=== PATIENT | female | born 1995 | race African-American/Black ===

== ENCOUNTER 2018-08-16 11:15 | Emergency (ER) | payer OTHER ==
[2018-08-16 11:42] LABS: BILIRUBIN,URINE NEGATIVE (NEGATIVE); GLUCOSE, URINE (UA) NEGATIVE (NEGATIVE); KETONES,URINE (UA) NEGATIVE (NEGATIVE); LEUKOCYTE ESTERASE, URINE NEGATIVE (NEGATIVE); NITRITE,URINE NEGATIVE (NEGATIVE); OCCULT BLOOD,URINE NEGATIVE (NEGATIVE); PROTEIN,URINE NEGATIVE (NEGATIVE); UROBILINOGEN,URINE 0.2 (NORMAL) E.U./dL (NORMAL)
[2018-08-16 11:44] LABS: CLARITY,URINE CLEAR (CLEAR); HCG UR QUAL NEGATIVE
--- NOTE | 2018-08-16 11:49 | ED Physician Documentation ---
PD HPI FEMALE - Stated complaint Stated Complaint: FEMALE - Chief complaint Chief Complaint: Abd Pain - History obtained from History obtained from: Patient - History of Present Illness Timing - onset: How many weeks ago (2) Timing - duration: Seconds, Minutes Timing - details: Intermittant Associated symptoms: Pelvic pain (sharp cramps and pains intermittently. No related to intercourse.), Vaginal discharge (minimal). 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 - Present Medications Home Medications: Ambulatory Orders Medication Instructions Recorded Confirmed Metronidazole [Flagyl] 500 mg PO BID #14 tablet 08/16/18 Naproxen 375 mg PO BID #20 tablet 08/16/18 - Allergies Allergies/Adverse Reactions: Allergies Allergy/AdvReac Type Severity Reaction Status Date / Time No Known Drug Allergies Allergy Verified 08/16/18 11:30 PD ED PE NORMAL - Vitals Vital signs reviewed: Yes - General General: Alert and oriented X 3, No acute distress, Well developed/nourished - Cardiac Cardiac: RRR, No murmur - Respiratory Respiratory: Clear bilaterally - Abdomen Abdomen: Normal bowel sounds, Soft, Non tender, Non distended - Female Female : Other (external normal. vault with white milky discharge with some malodor. No cervicitis seen. ) - Rectal Rectal: Deferred - Back Back: No CVA TTP - Derm Derm: Normal color, Warm and dry - Extremities Extremities: No tenderness to palpate, Normal ROM s pain - Neuro Neuro: Alert and oriented X 3, No motor deficit, Normal speech Results - Vitals Vitals: Oxygen O2 Source Room air - Labs Labs: Microbiology 08/16/18 13:30 Wet Prep - Final Genital - Vaginal Laboratory Tests 08/16/18 08/16/18 11:32 13:30 Urine Color YELLOW Urine Clarity CLEAR Urine pH 7.0 Ur Specific [place] <=1.005 Urine Protein NEGATIVE Urine Glucose (UA) NEGATIVE Urine Ketones NEGATIVE Urine Occult Blood NEGATIVE Urine Nitrite NEGATIVE Urine Bilirubin NEGATIVE Urine Urobilinogen 0.2 (NORMAL) Ur Leukocyte Esterase NEGATIVE Ur Microscopic Review NOT INDICATED Urine Culture Comments NOT INDICATED Urine HCG, Qual NEGATIVE Chlam trachomat DNA PCR NEGATIVE N.gonorrhoeae DNA (PCR) NEGATIVE T. vaginalis (PCR) NEGATIVE - Rads (name of study) pelvic U/S Radiology: Prelim report reviewed (multifollicular, no large cysts, no free fluid. Normal flow to ovaries. ), See rad report PD MEDICAL DECISION MAKING - ED course Complexity details: reviewed results, considered differential, d/w patient Departure - Departure Disposition: 01 Home, Self Care Clinical Impression: Pelvic pain, Bacterial vaginitis Condition: Stable Record reviewed to determine appropriate education?: Yes Instructions: ED Vaginosis Bacterial Follow-Up: Deanne Walker ARNP [Primary Care Provider] - Prescriptions: Metronidazole [Flagyl] 500 mg PO BID #14 tablet Naproxen 375 mg PO BID #20 tablet Comments: Stay well-hydrated. Naproxen anti-inflammatory twice daily for a week. Metronidazole antibiotic twice daily for a week as well for the bacterial vaginosis. We did do a culture as well and will call you if we need to change antibiotics based on the results of that in a couple of days. Follow-up with your primary care or gynecology if not improved over the next week. Your ultrasound showed a normal finding of several small follicles. There are no large cysts. There is no signs of bleeding or ruptured cyst. The uterus appeared normal without any fibroids or such. There is good blood flow to both ovaries. Essentially normal pelvic ultrasound. Discharge Date/Time: 08/16/18 15:38
[2018-08-16] MEDS ORDERED: IBUPROFEN 600 MG TABLET PO STA (12:26)
[2018-08-16] MEDS ORDERED: metroNIDAZOLE 250 MG TABLET PO STA (13:34)
--- NOTE | 2018-08-16 15:18 | Ultrasound Report ---
Reason: pelvic pain Procedure Date: 08/16/2018 Accession Number: [id number] / [id number] Procedure: US - Pelvic w/Transvag+Doppler Ltd CPT Code: FULL RESULT: EXAM: PELVIC ULTRASOUND WITH DOPPLERS CLINICAL HISTORY: Pelvic pain. COMPARISON: None. TECHNIQUE: Realtime transabdominal imaging performed to identify the uterus and adnexa and as an overview of other pelvic structures, followed by transvaginal imaging for better assessment of the endometrium and adnexa, with static image documentation. Color flow imaging and Doppler spectral analysis was performed to evaluate blood flow to the ovaries given pelvic pain and clinical concern for ovarian torsion. FINDINGS: Uterus: 6.4 x 2.6 x 4.5 cm, volume 39.2 cc. Anteverted position. Normal overall size and echotexture. Masses: None. Endometrium: 6.5 mm. No endometrial mass or polyp. Cervix: Unremarkable. Right Ovary: 3.2 x 1.6 x 2 cm, volume 5.1 cc. Normal echotexture. Arterial and venous blood flow are present. PSV 8.3 cm/sec. RI 0.4. Adnexa notable for prominent vascular structures measuring up to 0.6 cm. Otherwise, right adnexa is unremarkable. Left Ovary: 3.3 x 2 x 2.2 cm, volume 7.4 cc. Normal echotexture. Arterial and venous blood flow are present. PSV 6.1 cm/sec. RI 0.4. Adnexa are unremarkable. Free Fluid: Small volume free fluid is noted. Other: None. IMPRESSION: 1. No uterine mass. 2. No endometrial mass or polyp. 3. Multiple bilateral ovarian follicles. No concerning features. No adnexal mass lesion. Small volume free fluid. Prominent right adnexal vessels. Correlate for pelvic congestion symptoms. 4.Arterial and venous blood flow are present to the ovaries bilaterally. RADIA
[2018-08-16 15:36] VITALS: BP 121/92
[2018-08-16 21:35] LABS: TRICHOMONAS VAGINALIS DNA NEGATIVE (NEGATIVE)
== END 2018-08-16 15:38 | disposition home or self-care (01) ==
LOC: ED 11:15
DX: R10.2 Pelvic and perineal pain (principal); N76.0 Acute vaginitis
CPT/HCPCS: 76830; 76856; 81003; 81025; 87210; 87491; 87591; 87661; 93976; 99283; 99284; A9270; 81001; 87086

== ENCOUNTER 2020-03-21 08:00 | Outpatient (CLI) | payer OTHER ==
[2020-03-22 12:59] LABS: MUDS CUTOFF CONCENTRATIONS CUTOFF CONC BELOW:
[2020-03-22 13:04] LABS: BILIRUBIN,URINE NEGATIVE (NEGATIVE); GLUCOSE, URINE (UA) NEGATIVE (NEGATIVE); KETONES,URINE (UA) NEGATIVE (NEGATIVE); LEUKOCYTE ESTERASE, URINE NEGATIVE (NEGATIVE); NITRITE,URINE NEGATIVE (NEGATIVE); OCCULT BLOOD,URINE NEGATIVE (NEGATIVE); PROTEIN,URINE NEGATIVE (NEGATIVE); UROBILINOGEN,URINE 0.2 (NORMAL) E.U./dL (NORMAL)
[2020-03-22 13:05] LABS: CLARITY,URINE CLEAR (CLEAR)
[2020-03-22 13:08] LABS: BACTERIA,URINE Rare /HPF (None Seen); RBC,URINE 0-5 /HPF (0-5); SQUAMOUS EPITHELIAL CELL,UR MOD Squamous (<= Few); WBC,URINE 0-3 /HPF (0-5)
[2020-03-22 13:16] LABS: AMPHETAMINE SCREEN,URINE NEGATIVE (NEGATIVE); BARBITURATE SCREEN,UR NEGATIVE (NEGATIVE); BENZODIAZEPINES SCREEN, URINE NEGATIVE (NEGATIVE); COCAINE SCREEN URINE NEGATIVE (NEGATIVE); METHADONE SCREEN, URINE NEGATIVE (NEGATIVE); METHAMPHETAMINES SCREEN, URINE NEGATIVE (NEGATIVE); OPIATE SCREEN, URINE NEGATIVE (NEGATIVE); OXYCODONE SCREEN, URINE NEGATIVE (NEGATIVE); PROPOXYPHENE SCREEN, URINE NEGATIVE (NEGATIVE); THC CANNABINOID SCREEN, URINE NEGATIVE (NEGATIVE); TRICYCLIC ANTIDEPRESSANT,URINE NEGATIVE (NEGATIVE)
== END 2020-03-21 08:01 | disposition home or self-care (01) ==
LOC: LAB 08:00
PROVIDERS: ATTEND Nurse Practitioner Obstetrics & Gynecology
DX: Z32.01 Encounter for pregnancy test, result positive (principal)
CPT/HCPCS: 80306; 81001; 87086

== ENCOUNTER 2020-03-30 14:54 | Outpatient (CLI) | payer OTHER ==
--- NOTE | 2020-03-30 17:36 | Ultrasound Report ---
PROCEDURE: OB First Trimester w/TV INDICATIONS: TEST POSITIVE OUTSIDE/PRIOR DATING DATA: Last menstrual period (LMP): 01/21/2020. LMP-based estimated date of delivery (KAYLIE): 10/27/2020. First dating scan (date and location): 03/30/2020. Estimated date of delivery (KAYLIE) from first dating scan: 10/31/2020. TECHNIQUE: Real-time scanning was performed of the fetus and maternal pelvic organs, with image documentation. Endovaginal scanning was also performed to better visualize the fetus and maternal ovaries. COMPARISON: None. FINDINGS: Embryo: There is a gestational sac in the uterine fundus measuring 3 cm in mean sac diameter. Within the gestational sac there is a fetus measuring 2.6 cm. The composite gestational age is 9 weeks 2 da ys. heart rate detected at 174 bpm. Measurement variability in dating: +/- 4 weeks by LMP, +/- 7 days by mean sac diameter (use before 6 weeks gestation if crown-rump length not able to be measured), +/- 5 days by crown-rump length (6-12 weeks gestation). Maternal organs: Ovaries are normal with a corpus luteum cyst in the left ovary noted. IMPRESSION: Single live intrauterine gestation with average ultrasound age of 9 weeks 2 days. Reviewed by: Rafael Byers MD on 03/30/2020 5:34 PM PST Approved by: Rafael Byers MD on 03/30/2020 5:34 PM PST Station ID: [id number]
== END 2020-03-30 14:55 | disposition home or self-care (01) ==
LOC: DI 14:54
PROVIDERS: ATTEND Nurse Practitioner Obstetrics & Gynecology
DX: Z32.01 Encounter for pregnancy test, result positive (principal)

== ENCOUNTER 2020-04-11 08:00 | Outpatient (CLI) | payer OTHER ==
[2020-04-11 23:45] LABS: CHLAMYDIA TRACHOMATIS DNA NEGATIVE (NEGATIVE); NEISSERIA GONORRHOEAE DNA NEGATIVE (NEGATIVE); TRICHOMONAS VAGINALIS DNA NEGATIVE (NEGATIVE)
== END 2020-04-11 23:59 | disposition home or self-care (01) ==
LOC: LAB.WC 08:00
PROVIDERS: ATTEND Advanced Practice Midwife
DX: Z11.3 Encounter for screening for infections with a predominantly sexual mode of transmission (principal); Z34.00 Encounter for supervision of normal first pregnancy, unspecified trimester
CPT/HCPCS: 87491; 87591; 87661

== ENCOUNTER 2020-04-11 11:54 | Outpatient (CLI) | payer OTHER ==
[2020-04-11 12:22] LABS: BASOPHILS % (AUTO) 0.3 %; EOSINOPHILS # (AUTO) 0.2 10^3/uL (0.0-0.7); EOSINOPHILS % (AUTO) 1.9 %; HCT - HEMATOCRIT 35.9 % (37.0-47.0); HGB - HEMOGLOBIN 11.7 g/dL (12.0-16.0); LYMPHOCYTES # (AUTO) 2.3 10^3/uL (1.5-3.5); LYMPHOCYTES % (AUTO) 23.1 %; MEAN CORPUSCULAR HEMOGLOBIN 27.6 pg (27.0-31.0); MEAN CORPUSCULAR HGB CONC 32.6 g/dL (32.0-36.0); MEAN CORPUSCULAR VOLUME 84.7 fL (81.0-99.0); MEAN PLATELET VOLUME 9.9 fL (7.9-10.8); MONOCYTES # (AUTO) 0.7 10^3/uL (0.0-1.0); MONOCYTES % (AUTO) 7.1 %; NEUTROPHILS # (AUTO) 6.8 10^3/uL (1.5-6.6); NEUTROPHILS % (AUTO) 67.3 %; PLT - PLATELET COUNT 316 10^3/uL (130-450); RED BLOOD COUNT 4.24 10^6/uL (4.20-5.40); RED CELL DISTRIBUTION WIDTH 13.8 % (12.0-15.0); WHITE BLOOD COUNT 10.1 x10^3/uL (4.8-10.8)
[2020-04-11 13:14] LABS: ESTIMATED AVERAGE GLUCOSE 108 mg/dL (70-100); HEMOGLOBIN A1c% 5.4 % (4.27-6.07)
[2020-04-11 23:45] LABS: CHLAMYDIA TRACHOMATIS DNA NEGATIVE (NEGATIVE); NEISSERIA GONORRHOEAE DNA NEGATIVE (NEGATIVE); TRICHOMONAS VAGINALIS DNA NEGATIVE (NEGATIVE)
[2020-04-12 08:31] LABS: HIV AG/AB 4TH GEN NON-REACTIVE (NON-REACTIVE)
[2020-04-12 12:59] LABS: HEPATITIS B SURFACE ANTIGEN NON-REACTIVE (NON-REACTIVE); HEPATITIS C ANTIBODY NON-REACTIVE (NON-REACTIVE)
== END 2020-04-11 11:55 | disposition home or self-care (01) ==
LOC: LAB 11:54
PROVIDERS: ATTEND Advanced Practice Midwife
DX: Z34.00 Encounter for supervision of normal first pregnancy, unspecified trimester (principal); Z36.89 Encounter for other specified antenatal screening; Z11.3 Encounter for screening for infections with a predominantly sexual mode of transmission
CPT/HCPCS: 36415; 83036; 85025; 86592; 86593; 86762; 86780; 86787; 86803; 86850; 86900; 86901; 87340; 87389; 87491; 87591; 87661

== ENCOUNTER 2020-05-13 08:00 | Outpatient (CLI) | payer OTHER ==
[2020-05-16 12:05] LABS: AFP MOM 0.66; AGE RISK DOWN SYNDROME 1 IN 985; CALC'D GESTATIONAL AGE 16.1 weeks; CIGARETTE SMOKER? NOT GIVEN; DONOR AGE: EGG RETRIEVAL NOT GIVEN; DONOR EGG NO; ESTRIOL MOM 1.21; HCG MOM 2.77; HX OF NEURAL TUBE DEFECTS NO; INHIBIN A MOM 1.49; INSULIN DEPEND DIABETIC NO; MATERNAL WEIGHT 179 lbs; MSS DOWN SYNDROME RISK 1 IN 595; MSS3 TRISOMY 18 RISK <1 IN 5000; NUMBER OF FETUSES 1; PREV PREGNANCY DOWN SYND NO; RISK FOR ONTD <1 IN 5000
== END 2020-05-13 23:59 | disposition home or self-care (01) ==
LOC: LAB 08:00
PROVIDERS: ATTEND Nurse Practitioner Obstetrics & Gynecology
DX: Z36.0 Encounter for antenatal screening for chromosomal anomalies (principal)
CPT/HCPCS: 36415; 81220; 81511; 81599

== ENCOUNTER 2020-06-14 13:36 | Outpatient (CLI) | payer OTHER ==
--- NOTE | 2020-06-14 17:10 | Ultrasound Report ---
PROCEDURE: OB Detailed Eval INDICATIONS: SCREENING, SUPERVISION OF NORMAL PREG OUTSIDE/PRIOR DATING DATA: Last menstrual period (LMP): 01/21/2020. LMP-based estimated date of delivery (KAYLIE): 10/27/2020. First dating scan (date and location): 03/30/2020. Estimated date of delivery (KAYLIE) from first dating scan: 10/27/2020 provided by the provider. TECHNIQUE: Real-time scanning was performed of the fetus, with image documentation and biometric measurements. Endovaginal scanning: No COMPARISON: Prior OB ultrasound dated 03/30/2020. FINDINGS: General: A single living intrauterine gestation is present. Presentation: Breech Placenta: Placental position is anterior, without previa. Amniotic fluid index: 17.6 cm, normal for gestational age. heart rate: 157 beats per minute. Maternal cervical canal: 3.6 cm long; normal length is 2.5 cm or more. biometrics: Biparietal diameter: 20 weeks 4 Head circumference: 20 weeks 3 days Abdominal circumference: 20 weeks 3 days Femur length: 20 weeks Estimated gestational age from initial scan: 20 weeks 5 days Composite gestational age from present scan: 20 weeks 3 days Estimated weight and percentile: 3 and 44 g; 24th percentile Measurement variability in biometric dating: +/- 10 days from 12-20 weeks gestation, +/- 2 weeks from 20-30 weeks gestation, +/- 3 weeks at 30 weeks gestation or later. Anatomic survey: Neuro: Ventricles are normal at less than 10 mm. Cisterna magna is normal at 3-11 mm. Cerebellum i s normal in size and morphology. Nuchal skin fold: Normal at less than 6 mm between 14 and 20 weeks gestational age. Face: Nose and lips, facial profile are normal. Spine: No evidence for spina bifida. Heart: 4-chambered heart is present, and cardiac output fracture not well seen. Diaphragm: Diaphragm is intact. Stomach: Left-sided stomach is present. Kidneys: No hydronephrosis. Normal is less than 5 mm in 2nd trimester, less than 7 mm in 3rd trimester. Cord: 3 vessel cord has orthotopic insertion. Bladder: Normal in size. Extremities: All 4 extremities are visualized. IMPRESSION: 1. Normal interval growth 2. Cardiac outflow tracts not well visualized; otherwise normal anatomy. Follow-up recommended. Reviewed by: DEY Pineda on 06/14/2020 5:09 PM PDT Approved by: Rafael Byers MD on 06/14/2020 5:09 PM PDT Station ID: [id number]
== END 2020-06-14 13:37 | disposition home or self-care (01) ==
LOC: DI 13:36
PROVIDERS: ATTEND Nurse Practitioner Obstetrics & Gynecology
DX: Z34.02 Encounter for supervision of normal first pregnancy, second trimester (principal); Z36.89 Encounter for other specified antenatal screening

== ENCOUNTER 2020-07-14 15:41 | Outpatient (CLI) | payer OTHER ==
--- NOTE | 2020-07-15 14:33 | Ultrasound Report ---
PROCEDURE: OB F/U or Repeat INDICATIONS: SUPERVISION OF , COMPLETION OF FAS OUTSIDE/PRIOR DATING DATA: Last menstrual period (LMP): 01/21/2020. LMP-based estimated date of delivery (KAYLIE): 10/27/2020. First dating scan (date and location): 03/30/2020. Estimated date of delivery (KAYLIE) from first dating scan: 10/31/2020. The below data below was generated using the ultrasound KAYLIE of 10/31/2020 TECHNIQUE: Real-time scanning was performed of the fetus, with image documentation and biometric measurements. Endovaginal scanning: Performed COMPARISON: None. FINDINGS: General: A single living intrauterine gestation is present. Presentation: Vertex Placenta: Placental position is anterior, without previa. Amniotic fluid index: 17.7 cm, 5-24 cm normal. heart rate: 152 beats per minute. Maternal cervical canal: Closed. Limited anatomic survey demonstrates normal four-chamber heart, normal cardiac left ventricular outflow tract and normal right cardiac left ventricular outflow track. IMPRESSION: 1. Single living intrauterine . 2. Normal amniotic fluid index. 3. Normal limited anatomic survey with demonstration of normal four-chamber heart as well as normal r ight and left ventricular outflow tracts. Reviewed by: Blanca Liz MD, PhD on 07/15/2020 2:31 PM PDT Approved by: Blanca Liz MD, PhD on 07/15/2020 2:31 PM PDT Station ID: [id number]
== END 2020-07-14 15:42 | disposition home or self-care (01) ==
LOC: DI 15:41
PROVIDERS: ATTEND Nurse Practitioner Obstetrics & Gynecology
DX: Z34.90 Encounter for supervision of normal pregnancy, unspecified, unspecified trimester (principal); Z36.0 Encounter for antenatal screening for chromosomal anomalies

== ENCOUNTER 2020-07-15 14:57 | Outpatient (CLI) | payer OTHER ==
[2020-07-15 16:12] LABS: BILIRUBIN,URINE NEGATIVE (NEGATIVE); GLUCOSE, URINE (UA) NEGATIVE (NEGATIVE); KETONES,URINE (UA) NEGATIVE (NEGATIVE); LEUKOCYTE ESTERASE, URINE SMALL (NEGATIVE); NITRITE,URINE NEGATIVE (NEGATIVE); OCCULT BLOOD,URINE MODERATE (NEGATIVE); PROTEIN,URINE 30 mg/dL (NEGATIVE); UROBILINOGEN,URINE 0.2 (NORMAL) E.U./dL (NORMAL)
[2020-07-15 16:16] LABS: CLARITY,URINE HAZY (CLEAR)
[2020-07-15 16:18] LABS: AMORPHOUS SEDIMENT,UR Rare /LPF; BACTERIA,URINE Few /HPF (None Seen); MUCUS,URINE Few Strands; SQUAMOUS EPITHELIAL CELL,UR FEW Squamous (<= Few)
[2020-07-15 16:33] VITALS: BP 116/73
--- NOTE | 2020-07-15 16:42 | Ultrasound Report ---
PROCEDURE: OB Transvaginal INDICATIONS: abdominal cramping at 25 weeks OUTSIDE/PRIOR DATING DATA: Last menstrual period (LMP): 01/21/2020. LMP-based estimated date of delivery (KAYLIE): 10/27/2020. First dating scan (date and location): 03/30/2020. Estimated date of delivery (KAYLIE) from first dating scan: 10/31/2020. The below data below was generated using the referring provider stated KAYLIE of 10/27/2020 TECHNIQUE: Real-time scanning was performed of the fetus, with image documentation. Endovaginal scanning: Performed COMPARISON: None. FINDINGS: A single living intrauterine gestation is present. Presentation: Vertex Placenta: Not evaluated. Amniotic fluid index: Not evaluated heart rate: 152 beats per minutes. Maternal cervical canal: Closed and 2.8 cm long; normal length is 2.5 cm or more. Estimated gestational age from initial scan: 25 weeks 1 days. IMPRESSION: 1. Single living intrauterine . 2. Cervix is closed and measures 2.8 cm in length. Reviewed by: Blanca Liz MD, PhD on 07/15/2020 4:41 PM PDT Approved by: Blanca Liz MD, PhD on 07/15/2020 4:41 PM PDT Station ID: [id number]
[2020-07-15 17:23] LABS: BASOPHILS % (AUTO) 0.3 %; EOSINOPHILS # (AUTO) 0.2 10^3/uL (0.0-0.7); EOSINOPHILS % (AUTO) 1.9 %; HCT - HEMATOCRIT 31.4 % (37.0-47.0); HGB - HEMOGLOBIN 10.3 g/dL (12.0-16.0); LYMPHOCYTES # (AUTO) 2.5 10^3/uL (1.5-3.5); LYMPHOCYTES % (AUTO) 19.7 %; MEAN CORPUSCULAR HGB CONC 32.8 g/dL (32.0-36.0); MEAN CORPUSCULAR VOLUME 88.5 fL (81.0-99.0); MEAN PLATELET VOLUME 10.2 fL (7.9-10.8); MONOCYTES # (AUTO) 1.1 10^3/uL (0.0-1.0); MONOCYTES % (AUTO) 8.7 %; NEUTROPHILS # (AUTO) 8.7 10^3/uL (1.5-6.6); NEUTROPHILS % (AUTO) 68.8 %; PLT - PLATELET COUNT 280 10^3/uL (130-450); RED BLOOD COUNT 3.55 10^6/uL (4.20-5.40); RED CELL DISTRIBUTION WIDTH 13.6 % (12.0-15.0); WHITE BLOOD COUNT 12.7 x10^3/uL (4.8-10.8)
--- NOTE | 2020-07-15 18:01 | PROVIDER PROGRESS NOTE ---
- HPI Chief Complaint: Other Current : Current EDU 10/27/20 Gestation 25 Weeks and 1 Days 1 Para 0 Vital Signs Temperature 36.9 C 07/15/20 15:03 Heart Rate 83 07/15/20 15:03 Respiratory Rate 18 07/15/20 15:03 Blood Pressure 116/73 07/15/20 15:03 O2 Saturation 100 07/15/20 15:03 Temperature 36.9 C 07/15/20 15:03 Heart Rate 83 07/15/20 15:03 Respiratory Rate 18 07/15/20 15:03 Blood Pressure 116/73 07/15/20 15:03 O2 Saturation 100 07/15/20 15:03 - Procedures OB Procedure Performed: NST Diagnosis/Indication for NST: Other - Plan Plan: Pt evaluated [id number] S: Porshaanessitony presents today to [facility] with c/o back pain which is radiating to her sides. She reports the pain has become most significant today but started yesterday. She report it feels like menstrual-like cramping but at times feels more significant. She reports +FM. She denies vaginal bleeding or leakage of fluid. She denies urinary symptoms other than she does feel she has some urinary pressure at the end of emptying her bladder. She reports regular bowel movement. She denies fever, chills, or malaise. O: Normocephalic, atraumatic. Heart RRR w/o M/G/R, lungs CTAB. Abdomen gravid, soft, nontender. No CVA tenderness on thorough examination. Bilateral LE's no edema. Afebrile. Vital signs WNL NST performed 07/15/2020 NST read 07/15/2020 NST reactive. FHR baseline 140s, moderate variability, no decels. No contractions appreciated via tocometry. Transvaginal ultrasound: Cervical length 2.8cm, closed. FFN negative UA: indicates UTI. A: 25yo @ 25.1wks gestation Urinary tract infection, acute P: Rx sent to [facility] in [place]. Encouraged pt to complete entirely and present if symptoms persist or do not return once completed. Pt released home with precautions. Continue routine pp care. Pt verbalized understanding and agrees to above plan. She denies further questions or concerns at this time. FINAL DIAGNOSIS: Acute UTI
== END 2020-07-15 17:56 | disposition home or self-care (01) ==
LOC: WFO 14:57 → FBP 15:22 → WFO 17:56
PROVIDERS: ATTEND Nurse Practitioner Obstetrics & Gynecology
DX: O23.42 Unspecified infection of urinary tract in pregnancy, second trimester (principal); Z3A.25 25 weeks gestation of pregnancy
CPT/HCPCS: 36415; 81001; 82731; 85025; 87086; 99214

== ENCOUNTER 2020-07-19 08:00 | Outpatient (CLI) | payer OTHER | END 2020-07-19 23:59 | disposition home or self-care (01) | LOC: LAB.WC 08:00 | PROVIDERS: ATTEND Nurse Practitioner Obstetrics & Gynecology | DX: N39.0 Urinary tract infection, site not specified (principal) | CPT/HCPCS: 87086 ==

== ENCOUNTER 2020-08-03 08:08 | Outpatient (CLI) | payer OTHER ==
[2020-08-03 13:11] LABS: HCT - HEMATOCRIT 32.5 % (37.0-47.0); HGB - HEMOGLOBIN 10.6 g/dL (12.0-16.0); MEAN CORPUSCULAR HEMOGLOBIN 28.8 pg (27.0-31.0); MEAN CORPUSCULAR HGB CONC 32.6 g/dL (32.0-36.0); MEAN CORPUSCULAR VOLUME 88.3 fL (81.0-99.0); MEAN PLATELET VOLUME 10.7 fL (7.9-10.8); RED BLOOD COUNT 3.68 10^6/uL (4.20-5.40); RED CELL DISTRIBUTION WIDTH 13.8 % (12.0-15.0); WHITE BLOOD COUNT 10.4 x10^3/uL (4.8-10.8)
== END 2020-08-03 08:09 | disposition home or self-care (01) ==
LOC: LAB.N 08:08
PROVIDERS: ATTEND Nurse Practitioner Obstetrics & Gynecology
DX: O23.40 Unspecified infection of urinary tract in pregnancy, unspecified trimester (principal)
CPT/HCPCS: 36415; 82950; 85025; 85027; 86850

== ENCOUNTER 2020-09-13 08:00 | Outpatient (CLI) | payer OTHER | END 2020-09-13 23:59 | disposition home or self-care (01) | LOC: LAB.WC 08:00 | PROVIDERS: ATTEND Nurse Practitioner Obstetrics & Gynecology | DX: R35.0 Frequency of micturition (principal) | CPT/HCPCS: 87086 ==

== ENCOUNTER 2020-09-16 20:49 | Outpatient (CLI) | payer OTHER ==
[2020-09-16 21:14] VITALS: BP 123/80
[2020-09-16] MEDS ORDERED: LACTATED RINGERS 500 ML IV ONE (21:31)
[2020-09-16] MEDS ORDERED: ACETAMINOPHEN 500 MG TABLET PO ONE (21:32)
[2020-09-16 22:02] LABS: BASOPHILS % (AUTO) 0.4 %; EOSINOPHILS # (AUTO) 0.2 10^3/uL (0.0-0.7); EOSINOPHILS % (AUTO) 1.5 %; HCT - HEMATOCRIT 38.3 % (37.0-47.0); HGB - HEMOGLOBIN 12.3 g/dL (12.0-16.0); LYMPHOCYTES # (AUTO) 2.8 10^3/uL (1.5-3.5); LYMPHOCYTES % (AUTO) 25.4 %; MEAN CORPUSCULAR HEMOGLOBIN 29.6 pg (27.0-31.0); MEAN CORPUSCULAR HGB CONC 32.1 g/dL (32.0-36.0); MEAN CORPUSCULAR VOLUME 92.3 fL (81.0-99.0); MEAN PLATELET VOLUME 10.8 fL (7.9-10.8); MONOCYTES # (AUTO) 1.2 10^3/uL (0.0-1.0); MONOCYTES % (AUTO) 10.6 %; NEUTROPHILS # (AUTO) 6.8 10^3/uL (1.5-6.6); NEUTROPHILS % (AUTO) 61.6 %; PLT - PLATELET COUNT 273 10^3/uL (130-450); RED BLOOD COUNT 4.15 10^6/uL (4.20-5.40); RED CELL DISTRIBUTION WIDTH 13.7 % (12.0-15.0)
[2020-09-16 22:11] LABS: ALBUMIN 3.3 g/dL (3.2-5.5); BILIRUBIN,TOTAL 0.4 mg/dL (0.2-1.0); CALCIUM 9.2 mg/dL (8.5-10.3); CREATININE 0.6 mg/dL (0.4-1.0); POTASSIUM 3.7 mmol/L (3.5-5.0); TOTAL PROTEIN 6.7 g/dL (6.7-8.2)
[2020-09-16 22:13] LABS: CREATININE,URINE 70.3 mg/dL; PROTEIN/CREATININE RATIO,URINE 0.1 (<=0.2)
[2020-09-16] MEDS ORDERED: ACETAMINOPHEN 500 MG TABLET PO PRN (22:17)
--- NOTE | 2020-09-16 23:32 | PROVIDER PROGRESS NOTE ---
- HPI Chief Complaint: Decreased movement Current : Current EDU 10/27/20 Gestation 34 Weeks and 1 Days 1 Para 0 Vital Signs Temperature 37.2 C 09/16/20 20:55 Heart Rate 110 H 09/16/20 20:55 Respiratory Rate 22 09/16/20 20:55 Blood Pressure 131/88 H 09/16/20 20:55 O2 Saturation 98 09/16/20 20:55 Temperature 37.2 C 09/16/20 20:55 Heart Rate 101 H 09/16/20 21:12 Respiratory Rate 20 09/16/20 21:12 Blood Pressure 123/80 09/16/20 21:12 O2 Saturation 100 09/16/20 21:12 - Procedures OB Procedure Performed: NST NST Procedure: NST Procedure Start Date 09/16/20 Start Time 21:05 Stop Time 21:45 Vibroacoustic Stimulation Used No Patient States Movement Yes: decreased - Plan Plan: S: Shun presents to L&D triage with reports of a headache that started yesterday and has worsened over the day. She reports light sensitivity. She feels decreased movement. Denies LOF or VB. Denies contractions. O: Abdomen: soft, gravid, nontender RN reports: clonus-one beat, DTRs +2 CBC- wnl, plt 273 CMP wnl- AST 18; ALT 10 Urine Protein/Creatinine ratio: 0.1 BPs wnl TA 1000mg LR bolus- 500mL NST perform date 09/16/2020 NST read date 09/16/2020 Baseline 135, moderate variability, accels 15x15, no decels Contractions noted on monitor- pt does not feel them A: 25yo at 34.1wks gestation NST- reassuring Preeclampsia ruled out P: Continue with routine care Encouraged magnesium supplementation, and/or food consumption high in magnesium Final Diagnosis: decreased movement
== END 2020-09-16 22:55 | disposition home or self-care (01) ==
LOC: WFO 20:49 → FBP 20:52 → WFO 22:55
PROVIDERS: ATTEND Advanced Practice Midwife
DX: O36.8130 Decreased fetal movements, third trimester, not applicable or unspecified (principal); O99.891 Other specified diseases and conditions complicating pregnancy; R51.9 Headache, unspecified; Z3A.34 34 weeks gestation of pregnancy
CPT/HCPCS: 36415; 59025; 80053; 82570; 84156; 85025; 99214; A9270; J7120

== ENCOUNTER 2020-09-19 09:46 | Outpatient (CLI) | payer OTHER ==
--- NOTE | 2020-09-19 11:25 | Ultrasound Report ---
PROCEDURE: OB F/U or Repeat INDICATIONS: SIZE/DATE DISCREPANCY OUTSIDE/PRIOR DATING DATA: Last menstrual period (LMP): PROCEDURE: OB F/U or Repeat LMP-based estimated date of delivery (KAYLIE): 09/19/2020. First dating scan (date and location): 03/30/2020. Estimated date of delivery (KAYLIE) from first dating scan: 10/31/2020. The below data below was generated using the provider stated KAYLIE of 10/27/2020 TECHNIQUE: Real-time scanning was performed of the fetus, with image documentation and biometric measurements. Endovaginal scanning: COMPARISON: None. FINDINGS: General: A single living intrauterine gestation is present. Presentation: Vertex Placenta: Placental position is anterior, without previa. Amniotic fluid index: 11.3 cm. Deepest pocket is 5.9 cm. heart rate: 164 beats per minute. Maternal cervical canal: Unable to image. biometrics: Biparietal diameter: 7.7 cm. 30 weeks 1 day Head circumference: 24.3 cm. 32 weeks 0 days Abdominal circumference: 31 cm. 34 weeks 0 days Femur length: 6.6 cm. 34 weeks 0 days Estimated gestational age from initial scan: not applicable. Composite gestational ag e from present scan: 33 weeks 1 day Estimated weight and percentile: 2321 g. 28th percentile. Measurement variability in biometric dating: +/- 10 days from 12-20 weeks gestation, +/- 2 weeks from 20-30 weeks gestation, +/- 3 weeks at 30 weeks gestation or more. Anatomy: The chest/diaphragm, stomach/abdomen, bilateral renal regions, and urinary bladder/pelvis we re visualized and appear normal. IMPRESSION: 1. Estimated weight is 2321 g, at the 28th percentile for age. 2. YONIS equals 11.3 cm. Deepest pocket 5.9 cm. Reviewed by: Abhi Doan on 09/19/2020 11:23 AM PDT Approved by: Abhi Doan on 09/19/2020 11:23 AM PDT Station ID: [id number]
== END 2020-09-19 09:47 | disposition home or self-care (01) ==
LOC: DI 09:46
PROVIDERS: ATTEND Nurse Practitioner Obstetrics & Gynecology
DX: O26.843 Uterine size-date discrepancy, third trimester (principal); Z3A.33 33 weeks gestation of pregnancy

== ENCOUNTER 2020-09-23 19:53 | Outpatient (CLI) | payer OTHER ==
[2020-09-23 20:18] LABS: BASOPHILS % (AUTO) 0.3 %; EOSINOPHILS # (AUTO) 0.1 10^3/uL (0.0-0.7); EOSINOPHILS % (AUTO) 1.2 %; HCT - HEMATOCRIT 34.1 % (37.0-47.0); HGB - HEMOGLOBIN 11.5 g/dL (12.0-16.0); LYMPHOCYTES # (AUTO) 2.7 10^3/uL (1.5-3.5); LYMPHOCYTES % (AUTO) 22.6 %; MEAN CORPUSCULAR HEMOGLOBIN 29.9 pg (27.0-31.0); MEAN CORPUSCULAR HGB CONC 33.7 g/dL (32.0-36.0); MEAN CORPUSCULAR VOLUME 88.6 fL (81.0-99.0); MEAN PLATELET VOLUME 10.6 fL (7.9-10.8); MONOCYTES # (AUTO) 1.2 10^3/uL (0.0-1.0); MONOCYTES % (AUTO) 9.8 %; NEUTROPHILS # (AUTO) 7.8 10^3/uL (1.5-6.6); NEUTROPHILS % (AUTO) 65.5 %; PLT - PLATELET COUNT 262 10^3/uL (130-450); RED BLOOD COUNT 3.85 10^6/uL (4.20-5.40); RED CELL DISTRIBUTION WIDTH 13.8 % (12.0-15.0); WHITE BLOOD COUNT 11.8 x10^3/uL (4.8-10.8)
[2020-09-23 20:27] LABS: CREATININE,URINE 105.1 mg/dL; PROTEIN/CREATININE RATIO,URINE 0.2 (<=0.2)
[2020-09-23 20:29] LABS: ALBUMIN 3.1 g/dL (3.2-5.5); ALBUMIN/GLOBULIN RATIO 0.9 (1.0-2.2); BILIRUBIN,TOTAL 0.4 mg/dL (0.2-1.0); CALCIUM 8.8 mg/dL (8.5-10.3); CREATININE 0.6 mg/dL (0.4-1.0); POTASSIUM 3.8 mmol/L (3.5-5.0); TOTAL PROTEIN 6.4 g/dL (6.7-8.2)
[2020-09-23] MEDS ORDERED: oxyCODONE 5 MG TABLET PO ONE (21:00)
[2020-09-23] MEDS ORDERED: ACETAMINOPHEN 500 MG TABLET PO STA (21:03)
[2020-09-23 22:22] VITALS: BP 122/83
--- NOTE | 2020-09-24 11:21 | PROCEDURE REPORT ---
- HPI Diagnosis/Indication for NST: Other (Headache. 25-yo EDC 16 Oct 35 wks 1 d EGA She denies Scotoma. Hx of having decreased FM in the past but nopw notes good FM. anemia during this . Rh -.) Current EDU 10/27/20 Gestation 35 Weeks and 1 Days 1 Para 0 Vital Signs Temperature 37.6 C 09/23/20 20:10 Heart Rate 87 09/23/20 20:10 Respiratory Rate 20 09/23/20 20:10 Blood Pressure 129/83 H 09/23/20 20:10 O2 Saturation 97 09/23/20 20:10 Temperature 37.6 C 09/23/20 20:18 Heart Rate 90 09/23/20 21:01 Respiratory Rate 18 09/23/20 21:01 Blood Pressure 122/83 H 09/23/20 21:16 O2 Saturation 97 09/23/20 20:10 - NST Procedure NST Procedure Start Date 09/23/20 Start Time 21:18 Stop Time 21:48 Vibroacoustic Stimulation Used Yes Patient States Movement Yes: Headache unrelieved w/tylenol and visual changes - Results and Plan Findings/Impression: Some difficulty getting a reactive NST. [id number]. No decelerations. Few mild contractions which the patient did not sense. Patient had a biophysical profile which was 6 out of 8 the lacking number was respirations however she had received oxycodone with Tylenol prior to her BPP. This would explain her absence of respirations. Plan: Patient does not appear to have preeclampsia as her labs do not bear this out neither does her blood pressure. Because of the 8 out of 10 biophysical profile patient will return on Saturday to repeat nonstress test.
--- NOTE | 2020-09-24 12:07 | Ultrasound Report ---
PROCEDURE: OB Biophysical Profile INDICATIONS: Non-reactive NST at 35weeks OUTSIDE/PRIOR DATING DATA: Last menstrual period (LMP): 01/21/2020. LMP-based estimated date of delivery (KAYLIE): 2020. First dating scan (date and location): 03/30/2020. Estimated date of delivery (KAYLIE) from first dating scan: 10/31/2020. The below data below was generated using the KAYLIE of 10/31/2020 TECHNIQUE: Real-time scanning was performed of the fetus, with image documentation and biometric polina surements. Biophysical profile was also obtained. Endovaginal scanning: None COMPARISON: 09/19/2020 FINDINGS: General: A single living intrauterine gestation is present. Presentation: Vertex Placenta: Placental position is anterior, without previa. Amniotic fluid index: 18.7 cm, normal for gestational age. heart rate: 127 beats per minute. Maternal cervical canal: Not well seen cm long; normal length is 2.5 cm or more. Visualized anatomy is with the normal limits Estimated gestational age from initial scan: 35 week 1 day Biophysical profile: 6 out of 8 Tone: 2 points. Movement: 2 points. Respiration: 0 points. respirations movement was not observed during the exam Largest pocket of fluid: 2 points. IMPRESSION: Single live intrauterine consistent with a 35 week 1 day gestation. Biophysical profile 6 out of 8. respirations were not observed during the exam Note: Final report is concordant with preliminary report provided by [facility] Reviewed by: Ovidio Santiago MD on 09/24/2020 11:06 AM ESTHER Approved by: Ovidio Santiago MD on 09/24/2020 11:06 AM ESTHER Station ID: [id number]
== END 2020-09-23 23:10 | disposition home or self-care (01) ==
LOC: WFO 19:53 → FBP 19:53 → WFO 23:10
PROVIDERS: ATTEND Obstetrics & Gynecology
DX: O99.891 Other specified diseases and conditions complicating pregnancy (principal); R51.9 Headache, unspecified; H53.9 Unspecified visual disturbance; Z3A.35 35 weeks gestation of pregnancy
CPT/HCPCS: 36415; 59025; 76819; 80053; 82570; 84156; 84550; 85025; 99215; A9270; 99214

== ENCOUNTER 2020-09-25 09:56 | Outpatient (CLI) | payer OTHER ==
[2020-09-25 11:34] VITALS: BP 117/86
--- NOTE | 2020-09-25 12:11 | PROCEDURE REPORT ---
- HPI Diagnosis/Indication for NST: Other (07/19 BPP. Seen on Saturday NST with BPP. NST reactive but BPP showed 07/19 absence breathing. After oxycodone for HOLDER. HOLEDR markedly improved.) Vital Signs Temperature 36.8 C 09/25/20 10:12 Heart Rate 115 H 09/25/20 10:12 Respiratory Rate 18 09/25/20 10:12 Blood Pressure 134/89 H 09/25/20 10:12 O2 Saturation 100 09/25/20 10:12 Temperature 36.8 C 09/25/20 10:12 Heart Rate 115 H 09/25/20 10:12 Respiratory Rate 18 09/25/20 10:12 Blood Pressure 117/86 H 09/25/20 11:33 O2 Saturation 100 09/25/20 10:12 - NST Procedure NST Procedure Start Time 21:18 Stop Time 21:48 - Results and Plan Findings/Impression: Baseline 145. Accelerations to 165 with excellent [id number] variability. Reactive NST. Patient noted to have contractions every 3 minutes. These decreased with hydration and time. Her fibronectin was negative. Biophysical profile 07/19. YONIS good Respirations good tone good Absent motion. Plan: Patient told to keep OB appointment on Saturday. Patient also told to do kick counts. We will also start twice weekly NSTs.With BPP
--- NOTE | 2020-09-25 12:26 | Ultrasound Report ---
PROCEDURE: OB Biophysical Profile INDICATIONS: repeat BPP for nonreactive NST OUTSIDE/PRIOR DATING DATA: Last menstrual period (LMP): 01/21/2020. LMP-based estimated date of delivery (KAYLIE): 11/30/2020. First dating scan (date and location): 03/30/2020. Estimated date of delivery (KAYLIE) from first dating scan: 10/31/2020. The below data below was generated using the KAYLIE of 10/31/2020 TECHNIQUE: Real-time scanning was performed of the fetus, with image documentation and biometric polina surements. Biophysical profile was also obtained. Endovaginal scanning: None COMPARISON: 09/23/2020 FINDINGS: General: A single living intrauterine gestation is present. Presentation: Vertex Placenta: Placental position is anterior, without previa. Amniotic fluid index: 15.4 cm, normal for gestational age. heart rate: 160 beats per minute. Maternal cervical canal: Not visualized Estimated gestational age from initial scan: 35 week 3 day Biophysical profile: 6 out of 8 Tone: 2 points. Movement: 2 points. Respiration: 0 points. respiratory motion was not visualized during the exam Largest pocket of fluid: 2 points. IMPRESSION: Single live intrauterine consistent with 35 week 3 day gestation. Biophysical physical profile 6 out of 8. respiratory motion was observed during the exam. Note: Findings were discussed with the patient's RN, Katy, by the paint grinder [employer] at 11:35 AM 09/25/2020 Reviewed by: Ovidio Santiago MD on 09/25/2020 11:25 AM ESTHER Approved by: Ovidio Santiago MD on 09/25/2020 11:25 AM ESTHER Station ID: [id number]
== END 2020-09-25 12:30 | disposition home or self-care (01) ==
LOC: WFO 09:56 → FBP 09:59 → WFO 12:30
PROVIDERS: ATTEND Obstetrics & Gynecology
DX: O12.13 Gestational proteinuria, third trimester (principal)
CPT/HCPCS: 59025; 82731

== ENCOUNTER 2020-09-27 08:00 | Outpatient (CLI) | payer OTHER | END 2020-09-27 23:59 | disposition home or self-care (01) | LOC: LAB 08:00 | PROVIDERS: ATTEND Nurse Practitioner Obstetrics & Gynecology | DX: Z36.85 Encounter for antenatal screening for Streptococcus B (principal) | CPT/HCPCS: 87797 ==

== ENCOUNTER 2020-09-27 08:48 | Outpatient (CLI) | payer OTHER ==
[2020-09-27 09:39] LABS: CREATININE,URINE 94.1 mg/dL; PROTEIN/CREATININE RATIO,URINE 0.1 (<=0.2)
--- NOTE | 2020-09-27 10:22 | Ultrasound Report ---
PROCEDURE: OB Biophysical Profile INDICATIONS: Gestational HTN/headache, visual changes OUTSIDE/PRIOR DATING DATA: Last menstrual period (LMP): 01/21/2020. LMP-based estimated date of delivery (KAYLIE): 10/27/2020. First dating scan (date and location): 03/30/2020. Estimated date of delivery (KAYLIE) from first dating scan: 10/31/2020. The below data below was generated using the above KAYLIE of 10/31/2020 TECHNIQUE: Real-time scanning was performed of the fetus, with image documentation and biometric polina surements. Biophysical profile was also obtained. Endovaginal scanning: Not needed COMPARISON: All prior OB ultrasound studies for this . FINDINGS: General: A single living intrauterine gestation is present. Presentation: Vertex Placenta: Placental position is anterior, without previa. Amniotic fluid index: 13.8 cm, normal for gestational age. heart rate: 145 beats per minute. Maternal cervical canal: Not well seen biometrics: Estimated gestational age from initial scan: 35 weeks 5 days. Biophysical profile: Tone: 2 points. Movement: 2 points. Respiration: 2 points. Largest pocket of fluid: 2 points. IMPRESSION: Vertex presentation, anterior placenta without previa, normal amniotic fluid volume, biophysical prof ile yields 8 of 8 possible points. Reviewed by: Ruben Awan MD on 09/27/2020 10:21 AM PDT Approved by: Ruben Awan MD on 09/27/2020 10:21 AM PDT Station ID: [id number]
[2020-09-27 10:27] LABS: BASOPHILS % (AUTO) 0.2 %; EOSINOPHILS # (AUTO) 0.2 10^3/uL (0.0-0.7); EOSINOPHILS % (AUTO) 1.5 %; HCT - HEMATOCRIT 34.3 % (37.0-47.0); HGB - HEMOGLOBIN 11.3 g/dL (12.0-16.0); LYMPHOCYTES # (AUTO) 2.2 10^3/uL (1.5-3.5); LYMPHOCYTES % (AUTO) 19.8 %; MEAN CORPUSCULAR HGB CONC 32.9 g/dL (32.0-36.0); MEAN CORPUSCULAR VOLUME 87.9 fL (81.0-99.0); MEAN PLATELET VOLUME 10.4 fL (7.9-10.8); MONOCYTES # (AUTO) 1.1 10^3/uL (0.0-1.0); MONOCYTES % (AUTO) 10.1 %; NEUTROPHILS # (AUTO) 7.5 10^3/uL (1.5-6.6); NEUTROPHILS % (AUTO) 67.6 %; PLT - PLATELET COUNT 259 10^3/uL (130-450); RED CELL DISTRIBUTION WIDTH 13.9 % (12.0-15.0); WHITE BLOOD COUNT 11.1 x10^3/uL (4.8-10.8)
[2020-09-27 10:37] VITALS: BP 120/79
[2020-09-27 10:42] LABS: ALBUMIN 3.1 g/dL (3.2-5.5); ALBUMIN/GLOBULIN RATIO 0.9 (1.0-2.2); BILIRUBIN,TOTAL 0.3 mg/dL (0.2-1.0); CALCIUM 9.2 mg/dL (8.5-10.3); CREATININE 0.7 mg/dL (0.4-1.0); POTASSIUM 3.8 mmol/L (3.5-5.0); TOTAL PROTEIN 6.6 g/dL (6.7-8.2)
--- NOTE | 2020-09-27 22:31 | PROVIDER PROGRESS NOTE ---
- HPI Chief Complaint: Hypertension/PIH Current : Current EDU 10/27/20 Gestation 35 Weeks and 5 Days 1 Para 0 Vital Signs Temperature 37.3 C 09/27/20 09:07 Heart Rate 100 09/27/20 09:07 Respiratory Rate 18 09/27/20 09:07 Blood Pressure 145/88 H 09/27/20 09:07 O2 Saturation 97 09/27/20 09:07 Temperature 37.3 C 09/27/20 09:07 Heart Rate 100 09/27/20 09:07 Respiratory Rate 18 09/27/20 09:07 Blood Pressure 120/79 09/27/20 10:30 O2 Saturation 97 09/27/20 09:07 - Procedures OB Procedure Performed: NST NST Procedure: NST Procedure Start Date 09/27/20 Start Time 09:00 Stop Time 09:20 Vibroacoustic Stimulation Used No Patient States Movement Yes - Plan Plan: Philipp presented to Labor and Delivery following a appointment where her blood pressures were high, and she reported decreased movement and a headache Upon examination in triage, Philipp denied having a headache today. Denies LOF or VB O: BPs wnl while at triage P:C 0.1 ALT/AST wnl NST perform date 09/26/2020 NST read date 09/26/2020 Impression: reactive BPP 09/18 A: 25yo at 35.5wks gestation present for rule out preeclampsia Neither preeclampsia nor gestational hypertension are diagnosed at this time P: Philipp will be getting twice weekly NSTs and once weekly BPPs accompanied by blood pressure checks Continue with routine care
== END 2020-09-27 11:04 | disposition home or self-care (01) ==
LOC: WFO 08:48 → FBP 08:51 → WFO 11:04
PROVIDERS: ATTEND Nurse Practitioner Obstetrics & Gynecology
DX: O16.3 Unspecified maternal hypertension, third trimester (principal); O36.8130 Decreased fetal movements, third trimester, not applicable or unspecified; Z3A.35 35 weeks gestation of pregnancy
CPT/HCPCS: 36415; 59025; 80053; 82570; 84156; 85025; 99214

== ENCOUNTER 2020-09-30 09:58 | Outpatient (CLI) | payer OTHER ==
[2020-09-30 10:30] VITALS: BP 131/88
--- NOTE | 2020-10-01 21:02 | PROCEDURE REPORT ---
- HPI Diagnosis/Indication for NST: Decreased movement Current EDU 10/27/20 Gestation 36 Weeks and 1 Days 1 Para 0 Vital Signs Temperature 36.7 C 09/30/20 10:16 Heart Rate 100 09/30/20 10:16 Respiratory Rate 18 09/30/20 10:16 Blood Pressure 129/89 H 09/30/20 10:16 O2 Saturation 98 09/30/20 10:16 Temperature 36.7 C 09/30/20 10:16 Heart Rate 100 09/30/20 10:16 Respiratory Rate 18 09/30/20 10:16 Blood Pressure 131/88 H 09/30/20 10:29 O2 Saturation 98 09/30/20 10:16 - NST Procedure NST Procedure Start Date 09/30/20 Start Time 10:06 Stop Time 10:35 Vibroacoustic Stimulation Used No Patient States Movement Yes - Results and Plan Plan: Annanessia presents today for scheduled NST secondary to decreased movement. NST performed 09/30/2020 NST read 10/01/2020 NST reactive. FHR baseline 140, moderate variability, + accels, no decels Mild uterine irritability present on monitor which is not appreciated by the pt. Pt released home with precautions. FINAL DIAGNOSIS: Decreased movement.
== END 2020-09-30 10:35 | disposition home or self-care (01) ==
LOC: WFO 09:58 → FBP 10:02 → WFO 10:35
PROVIDERS: ATTEND Nurse Practitioner Obstetrics & Gynecology
DX: O36.8130 Decreased fetal movements, third trimester, not applicable or unspecified (principal); Z3A.36 36 weeks gestation of pregnancy
CPT/HCPCS: 59025

== ENCOUNTER 2020-10-03 20:01 | Outpatient (CLI) | payer OTHER ==
[2020-10-03] MEDS ORDERED: ONDANSETRON ODT 4 MG TABLET TL ONE (20:33)
[2020-10-03 21:07] LABS: BASOPHILS % (AUTO) 0.2 %; EOSINOPHILS # (AUTO) 0.1 10^3/uL (0.0-0.7); EOSINOPHILS % (AUTO) 1.3 %; HCT - HEMATOCRIT 35.7 % (37.0-47.0); LYMPHOCYTES # (AUTO) 2.5 10^3/uL (1.5-3.5); LYMPHOCYTES % (AUTO) 22.3 %; MEAN CORPUSCULAR HEMOGLOBIN 29.2 pg (27.0-31.0); MEAN CORPUSCULAR HGB CONC 33.6 g/dL (32.0-36.0); MEAN CORPUSCULAR VOLUME 86.9 fL (81.0-99.0); MEAN PLATELET VOLUME 10.6 fL (7.9-10.8); MONOCYTES # (AUTO) 1.1 10^3/uL (0.0-1.0); MONOCYTES % (AUTO) 10.1 %; NEUTROPHILS # (AUTO) 7.4 10^3/uL (1.5-6.6); NEUTROPHILS % (AUTO) 65.7 %; PLT - PLATELET COUNT 278 10^3/uL (130-450); RED BLOOD COUNT 4.11 10^6/uL (4.20-5.40); RED CELL DISTRIBUTION WIDTH 13.6 % (12.0-15.0); WHITE BLOOD COUNT 11.2 x10^3/uL (4.8-10.8)
[2020-10-03 21:08] LABS: ALBUMIN 3.4 g/dL (3.2-5.5); ALBUMIN/GLOBULIN RATIO 0.9 (1.0-2.2); BILIRUBIN,TOTAL 0.5 mg/dL (0.2-1.0); CALCIUM 9.6 mg/dL (8.5-10.3); CREATININE 0.6 mg/dL (0.4-1.0); POTASSIUM 4.4 mmol/L (3.5-5.0); TOTAL PROTEIN 7.1 g/dL (6.7-8.2)
[2020-10-03 21:13] LABS: CREATININE,URINE 75.8 mg/dL; PROTEIN/CREATININE RATIO,URINE 0.1 (<=0.2)
[2020-10-03 21:25] LABS: RUPTURE OF MEMBRANES PLUS POSITIVE (NEGATIVE)
[2020-10-03 22:21] LABS: RUPTURE OF MEMBRANES PLUS NEGATIVE (NEGATIVE)
[2020-10-03 22:46] VITALS: BP 128/79
--- NOTE | 2020-10-03 23:25 | PROVIDER PROGRESS NOTE ---
- HPI Chief Complaint: Leakage of vaginal fluid Current : Current EDU 10/27/20 Gestation 36 Weeks and 4 Days 1 Para 0 Vital Signs Temperature 37.3 C 10/03/20 20:11 Heart Rate 94 10/03/20 20:11 Respiratory Rate 19 10/03/20 20:11 Blood Pressure 131/94 H 10/03/20 20:11 O2 Saturation 96 10/03/20 20:11 Temperature 37.3 C 10/03/20 20:11 Heart Rate 85 10/03/20 22:22 Respiratory Rate 19 10/03/20 20:11 Blood Pressure 128/79 10/03/20 22:22 O2 Saturation 96 10/03/20 20:11 - Procedures OB Procedure Performed: NST Diagnosis/Indication for NST: Other NST Procedure: NST Procedure Start Time 10:06 Stop Time 10:35 - Plan Plan: Annanessitony is a 25yo @ 36.4wks gestation who presents today [facility] with c/o vaginal leakage of fluid since yesterday, nausea and vomiting all day today, intermittent headache and intermittent spots in her visual field. She denies vaginal bleeding or contractions. She reports +FM. She denies constant headache and states it seems relatively mild and is only intermittent. She states she has occasional spots in her visual field that seem random and are not associated with position changes. She denies increased swelling other than her hands and feet have been consistently swollen towards the end of the day but has not been worse recently. Denies RUQ or epigastric pain. She states she feels like her vomiting is related to acid reflux. She denies urinary symptoms. She has not had intercourse in the past 24 hours. She is supported by her today. NST performed 10/03/2020 NST read 10/03/2020 NST reactive. FHR baseline 155, moderate variability, + accels, no decels Contractions intermittent and palpate mild. No appreciated by pt. Vitals: Initial BP 131/94 with repeats 118/82 and 128/79. T 37.3, HR 85, RR 19 Labs: PLT 278, Creatinine 0.6, AST 18, ALT 10, urine protein creatinine ratio 0.1 ROM+ positive with repeat ROM+ negative Pooling negative, nitrizine negative, Ferning negative. YONIS 13.4 AFFIRM collected -pending Rapid COVID PCR - negative PE: Heart RRR w/o M/G/R Lungs CTAB Abdomen gravid, soft, nontender. No RUQ pain. Copious amounts of white discharge noted on speculum examination. Bilateral LE's trace edema. Mood is good. BP improved after mildly elevated initial reading. Nausea resolved with 1 dose of 4mg PO zofran. Assessment: 25yo @ 36.4wks gestation Nausea and vomiting-resolved Acid reflux Increased vaginal discharge - membranes intact Plan: Pt released home with precautions. Reviewed PTL precautions and PIH warning s/sx and when to present. Encouraged increased fluid intake. Pt has emergency contact number. She will return for routine visit 10/05/2020 or sooner PRN. She verbalized understanding and agrees to above plan. She denies further questions or concerns at this time. FINAL DIAGNOSIS: Increased vaginal discharge Heartburn Nausea in
[2020-10-04 01:45] LABS: BACTERIAL VAGINOSIS DNA POSITIVE (NEGATIVE); CANDIDA GLABRATA DNA NEGATIVE (NEGATIVE); CANDIDA GROUP DNA NEGATIVE (NEGATIVE); CANDIDA KRUSEI DNA NEGATIVE (NEGATIVE); TRICHOMONAS VAGINALIS DNA NEGATIVE (NEGATIVE)
--- NOTE | 2020-10-04 08:14 | Ultrasound Report ---
PROCEDURE: OB Limited INDICATIONS: YONIS, R/O ROM OUTSIDE/PRIOR DATING DATA: Last menstrual period (LMP): 01/21/2020. LMP-based estimated date of delivery (KAYLIE): 10/27/2020. First dating scan (date and location): 03/30/2020. Estimated date of delivery (KAYLIE) from first dating scan: 10/31/2020. The below data below was generated using the clinical KAYLIE of 10/27/2020 TECHNIQUE: Real-time scanning was performed of the fetus, with image documentation. COMPARISON: None. FINDINGS: A single living intrauterine gestation is present. Presentation: Vertex Placenta: Placental position is anterior, without previa. No abruption. Amniotic fluid index: 13.3 cm, within normal limits for gestational age. Largest pocket 5 cm heart rate: 160 beats per minutes. Maternal cervical canal: Not assessed Estimated gestational age from initial scan: 36 weeks 4 days IMPRESSION: 1. Single live intrauterine . 2. YONIS is within normal limits. The above findings are concordant with preliminary report. Reviewed by: Imelda Gutierrez MD on 10/04/2020 8:13 AM PDT Approved by: Imelda Gutierrez MD on 10/04/2020 8:13 AM PDT Station ID: [id number]
== END 2020-10-03 23:15 | disposition home or self-care (01) ==
LOC: WFO 20:01 → FBP 20:02 → WFO 23:15
PROVIDERS: ATTEND Nurse Practitioner Obstetrics & Gynecology
DX: O99.891 Other specified diseases and conditions complicating pregnancy (principal); N89.8 Other specified noninflammatory disorders of vagina; O99.613 Diseases of the digestive system complicating pregnancy, third trimester; K21.9 Gastro-esophageal reflux disease without esophagitis; R11.0 Nausea; Z3A.36 36 weeks gestation of pregnancy; Z20.822 Contact with and (suspected) exposure to COVID-19
CPT/HCPCS: 36415; 76815; 80053; 82570; 84112; 84156; 85025; 87481; 87635; 87661; 87801; 99215; Q0162

== ENCOUNTER 2020-10-07 10:00 | Outpatient (CLI) | payer OTHER ==
[2020-10-07 10:20] VITALS: BP 127/82
--- NOTE | 2020-10-07 10:41 | PROCEDURE REPORT ---
- HPI Diagnosis/Indication for NST: Decreased movement Vital Signs Temperature 37.2 C 10/07/20 10:18 Heart Rate 110 H 10/07/20 10:18 Respiratory Rate 18 10/07/20 10:18 Blood Pressure 127/82 H 10/07/20 10:18 O2 Saturation 99 10/07/20 10:18 Temperature 37.2 C 10/07/20 10:18 Heart Rate 110 H 10/07/20 10:18 Respiratory Rate 18 10/07/20 10:18 Blood Pressure 127/82 H 10/07/20 10:18 O2 Saturation 99 10/07/20 10:18 - NST Procedure NST Procedure Start Time 10:06 Stop Time 10:35 - Results and Plan Findings/Impression: Shun is a 25yo @ 37.1wks gestation who presents today for schedule NST secondary to persistent decreased movement. She denies VB, Lof, or contractions. NST performed 10/07/2020 NST read 10/07/2020 FHR baseline 150, moderate variability, + accels, no decels Occasional mild contractions appreciated by pt as kimmy garrido contractions with occasionally feeling slightly more than that but overall tolerating with ease. Pt released home with precautions. Continue twice weekly NSTs with once weekly YONIS. Pt verbalized understanding and agrees to above plan. She denies further questions or concerns at this time. FINAL DIAGNOSIS: Decreased movement, third trimester
== END 2020-10-07 10:45 | disposition home or self-care (01) ==
LOC: WFO 10:00 → FBP 10:05 → WFO 10:45
PROVIDERS: ATTEND Nurse Practitioner Obstetrics & Gynecology
DX: O36.8130 Decreased fetal movements, third trimester, not applicable or unspecified (principal); Z3A.37 37 weeks gestation of pregnancy
CPT/HCPCS: 59025

== ENCOUNTER 2020-10-11 08:00 | Outpatient (CLI) | payer OTHER | END 2020-10-11 23:59 | disposition home or self-care (01) | LOC: LAB.WC 08:00 | PROVIDERS: ATTEND Nurse Practitioner Obstetrics & Gynecology | DX: Z36.85 Encounter for antenatal screening for Streptococcus B (principal) | CPT/HCPCS: 87797 ==

== ENCOUNTER 2020-10-11 08:38 | Outpatient (CLI) | payer OTHER ==
[2020-10-11 09:16] VITALS: BP 138/89
--- NOTE | 2020-10-11 11:42 | PROCEDURE REPORT ---
- HPI Diagnosis/Indication for NST: Decreased movement Current EDU 10/27/20 Gestation 37 Weeks and 5 Days 1 Para 0 Vital Signs Heart Rate 100 10/11/20 09:13 Respiratory Rate 16 10/11/20 09:13 Blood Pressure 138/89 H 10/11/20 09:13 O2 Saturation 99 10/11/20 09:13 Temperature Heart Rate 100 10/11/20 09:13 Respiratory Rate 16 10/11/20 09:13 Blood Pressure 138/89 H 10/11/20 09:13 O2 Saturation 99 10/11/20 09:13 - NST Procedure NST Procedure Start Date 10/11/20 Start Time 09:05 Stop Time 09:45 Vibroacoustic Stimulation Used No Patient States Movement Yes - Results and Plan Plan: Annanessia presents today for scheduled NST with BPP secondary to persistently decreased movement. She denies concerns or complaints today. NST performed 10/11/2020 NST read 10/11/2020 NST reactive. FHR baseline 140s, moderate variability, + accels, no decels No contractions appreciated by pt. Pt released home with precautions. FINAL DIAGNOSIS: Decreased movement >37wks gestation.
--- NOTE | 2020-10-11 12:14 | Ultrasound Report ---
PROCEDURE: OB F/U or Repeat INDICATIONS: decreased movement OUTSIDE/PRIOR DATING DATA: Last menstrual period (LMP): 03/23/2019. LMP-based estimated date of delivery (KAYLIE): 10/27/2020. First dating scan (date and location): 03/30/2020. Estimated date of delivery (KAYLIE) from first dating scan: 10/31/2020. The below data below was generated using the KAYLIE of 10/31/2020 TECHNIQUE: Real-time scanning was performed of the fetus, with image documentation and biometric measurements. Endovaginal scanning: None COMPARISON: None. FINDINGS: General: A single living intrauterine gestation is present. Presentation: Cephalic Placenta: Placental position is anterior, without previa. Amniotic fluid index: 10.3 cm, normal for gestational age. heart rate: 148 beats per minute. Maternal cervical canal: Not visualized biometrics: Biparietal diameter: 8.0 cm, 32 week 1 day Head circumference: 31.1 cm, 34 week 6 day Abdominal circumference: 33.3 cm, 37 week 1 day Femur length: 7.3 cm, 37 week 3 day Estimated gestational age from initial scan: 37 week 5 day Composite gestational age from present scan: 35 week 3 day Estimated weight and percentile: 2916 g, 25th percentile Measurement variability in biometric dating: +/- 10 days from 12-20 weeks gestation, +/- 2 weeks from 20-30 weeks gestation, +/- 3 weeks at 30 weeks gestation or more. Biophysical profile score: Tone, movement, respiration and YONIS are all created 2 out of 2 for a total score of 8 out of 8 S/D ratio: 2.4, 2.1, 2.1 Other: Nuchal cord noted. IMPRESSION: Single live intrauterine consistent with a 35 week 3 day gestation by current ultrasound Biophysical profile score 8 out of 8 Reviewed by: Ovidio Santiago MD on 10/11/2020 11:13 AM ESTHER Approved by: Ovidio Santiago MD on 10/11/2020 11:13 AM ESTHER Station ID: [id number]
--- NOTE | 2020-10-11 12:16 | Ultrasound Report ---
PROCEDURE: OB F/U or Repeat INDICATIONS: decreased movement OUTSIDE/PRIOR DATING DATA: Last menstrual period (LMP): 03/23/2019. LMP-based estimated date of delivery (KAYLIE): 10/27/2020. First dating scan (date and location): 03/30/2020. Estimated date of delivery (KAYLIE) from first dating scan: 10/31/2020. The below data below was generated using the KAYLIE of 10/31/2020 TECHNIQUE: Real-time scanning was performed of the fetus, with image documentation and biometric measurements. Endovaginal scanning: None COMPARISON: 10/03/2020 FINDINGS: General: A single living intrauterine gestation is present. Presentation: Cephalic Placenta: Placental position is anterior, without previa. Amniotic fluid index: 10.3 cm, normal for gestational age. heart rate: 148 beats per minute. Maternal cervical canal: Not visualized biometrics: Biparietal diameter: 8.0 cm, 32 week 1 day Head circumference: 31.1 cm, 34 week 6 day Abdominal circumference: 33.3 cm, 37 week 1 day Femur length: 7.3 cm, 37 week 3 day Estimated gestational age from initial scan: 37 week 5 day Composite gestational age from present scan: 35 week 3 day Estimated weight and percentile: 2916 g, 25th percentile Measurement variability in biometric dating: +/- 10 days from 12-20 weeks gestation, +/- 2 weeks from 20-30 weeks gestation, +/- 3 weeks at 30 weeks gestation or more. Biophysical profile score: Tone, movement, respiration and YONIS are all created 2 out of 2 for a total score of 8 out of 8 S/D ratio: 2.4, 2.1, 2.1 Other: Nuchal cord noted. IMPRESSION: Single live intrauterine consistent with a 35 week 3 day gestation by current ultrasound Biophysical profile score 8 out of 8 Reviewed by: Ovidio Santiago MD on 10/11/2020 11:14 AM ESTHER Approved by: Ovidio Santiago MD on 10/11/2020 11:14 AM ESTHER Station ID: [id number]
== END 2020-10-11 11:05 | disposition home or self-care (01) ==
LOC: WFO 08:38 → FBP 08:41 → WFO 11:05
PROVIDERS: ATTEND Nurse Practitioner Obstetrics & Gynecology
DX: O36.8130 Decreased fetal movements, third trimester, not applicable or unspecified (principal); Z3A.37 37 weeks gestation of pregnancy
CPT/HCPCS: 59025

== ENCOUNTER 2020-10-14 09:58 | Inpatient (IN) | payer OTHER ==
--- NOTE | 2020-10-14 11:00 | PROVIDER PROGRESS NOTE ---
- HPI Chief Complaint: Decreased movement Current : Current EDU 10/27/20 Gestation 38 Weeks and 1 Days 1 Para 0 Vital Signs Temperature 36.3 C L 10/14/20 10:13 Heart Rate 110 H 10/14/20 10:13 Respiratory Rate 18 10/14/20 10:13 Blood Pressure 148/95 H 10/14/20 10:13 O2 Saturation 100 10/14/20 10:13 Temperature 36.3 C L 10/14/20 10:13 Heart Rate 110 H 10/14/20 10:13 Respiratory Rate 18 10/14/20 10:13 Blood Pressure 134/88 H 10/14/20 10:39 O2 Saturation 100 10/14/20 10:13 - Procedures OB Procedure Performed: NST Diagnosis/Indication for NST: Decreased movement NST Procedure: NST Procedure Start Date 10/14/20 Start Time 10:06 Stop Time 10:43 Vibroacoustic Stimulation Used No Patient States Movement Yes - Plan Plan: Pt evaluated face to face Annanessia presents today for scheduled NST secondary to persistent decreased movement. She denies vaginal bleeding or leakage of fluid. She reports intermittent contractions which seem to be slightly more uncomfortable the past day or so. She reports +FM although she consistently has difficulty feeling movement. She reports mild, intermittent O: BP 148/95, 141/91, 134/88 (meet criteria for gestational hypertension secondary to previously elevated BP 140/90s at 35wks gestation). NST performed 10/14/2020 NST read 10/14/2020 NST reactive. FHR baseline 140s, moderate variability, + accels, no decels Contractions palpate mild every 6-8 minutes with soft resting tone Normocephalic, atraumtic, heart RRR w/o M/G/R, lungs CTAB, abdomen gravid, soft, nontender, bilateral LE's trace edema, mood is good. Preeclampsia labs: Hgb 12.2; Hct 37.1 PLT 255 AST 16; ALT 10 Pro/Creat ratio 0.1 A: 25yo @ 38.1wks gestation by LMP c/w 9.6wks U/S Gestational hypertension FHR Category I GBS POSITIVE Rh negative Plan: Admit for medical induction of labor secondary to gestational hypertension. Misoprostol 50mcg q 4 hours for pre-induction cervical ripening. Continuous monitoring. Encouraged ambulation and position changes. Jacuzzi PRN. Nitrous oxide PRN. Epidural per maternal request. Anticipate . FINAL DIAGNOSIS: Gestational hypertension
[2020-10-14 11:16] LABS: HCT - HEMATOCRIT 37.1 % (37.0-47.0); HGB - HEMOGLOBIN 12.2 g/dL (12.0-16.0); MEAN CORPUSCULAR HGB CONC 32.9 g/dL (32.0-36.0); MEAN CORPUSCULAR VOLUME 88.1 fL (81.0-99.0); MEAN PLATELET VOLUME 10.6 fL (7.9-10.8); RED BLOOD COUNT 4.21 10^6/uL (4.20-5.40); RED CELL DISTRIBUTION WIDTH 13.9 % (12.0-15.0); WHITE BLOOD COUNT 10.6 x10^3/uL (4.8-10.8)
[2020-10-14 11:28] LABS: ALBUMIN 3.4 g/dL (3.2-5.5); ALBUMIN/GLOBULIN RATIO 0.9 (1.0-2.2); BILIRUBIN,TOTAL 0.4 mg/dL (0.2-1.0); CALCIUM 9.5 mg/dL (8.5-10.3); CREATININE 0.8 mg/dL (0.4-1.0); POTASSIUM 3.9 mmol/L (3.5-5.0); TOTAL PROTEIN 7.3 g/dL (6.7-8.2)
[2020-10-14 11:48] LABS: CREATININE,URINE 63.1 mg/dL; PROTEIN/CREATININE RATIO,URINE 0.1 (<=0.2)
[2020-10-14] MEDS ORDERED: SODIUM CHLORIDE FLUSH 0.9% 10 ML SYRINGE IVP PRN (13:07)
[2020-10-14] MEDS ORDERED: AMPICILLIN 2 GM in SODIUM CHLORIDE 0.9% MINIBAG 100 ML IV ONE (13:07)
[2020-10-14] MEDS ORDERED: TRANEXAMIC ACID IN NACL 1,000 MG/100 ML BAG IV PRN (13:07)
[2020-10-14] MEDS ORDERED: OXYTOCIN 10 UNIT/ML VIAL IM PRN (13:07)
[2020-10-14] MEDS ORDERED: ONDANSETRON 4 MG/2 ML VIAL IVP PRN (13:07)
[2020-10-14] MEDS ORDERED: OXYTOCIN/SODIUM CHLORIDE 500 ML IV PRN (13:07)
[2020-10-14] MEDS ORDERED: CARBOPROST TROMETHAMINE 250 MCG/ML AMP IM PRN (13:07)
[2020-10-14] MEDS ORDERED: miSOPROStoL 200 MCG TABLET BC PRN (13:07)
[2020-10-14] MEDS ORDERED: METHYLERGONOVINE 0.2 MG/ML VIAL IM PRN (13:07)
[2020-10-14] MEDS ORDERED: LIDOCAINE-MPF 1% 30 ML VIAL ID PRN (13:07)
--- NOTE | 2020-10-14 13:11 | HISTORY & PHYSICAL EXAMINATION ---
Admit History - Visit Reason Visit Reason: Other - : 1 Parity: 0 Premature: 0 Ectopic: 0 : 0 Care: positive: [facility] Risk/History: positive: None Complications This : positive: induced HTN Smoking Status: Never smoker - Mother's Labs Mother's Blood Type: positive: A Mother's RH: positive: Negative GBS: positive: Group B Strep Positive Rubella Status: positive: Immune (da) Meds/Allgy - Home Medications Home Medications: Ambulatory Orders Medication Instructions Recorded Confirmed Vit No.130/Iron/Folic 1 tab PO DAILY 09/16/20 09/16/20 [ Tablet] - Allergies Allergies/Adverse Reactions: Allergies Allergy/AdvReac Type Severity Reaction Status Date / Time No Known Drug Allergies Allergy Verified 10/03/20 20:38 Review of Systems - Constitutional Constitutional: reports: Fatigue. denies: Fever, Chills, Malaise - Eyes Eyes: denies: Blurred vision, Spots in vision, Dipolpia - Cardiovascular Cariovascular: reports: Edema. denies: Irregular heart rate, Chest pain - Respiratory Respiratory: denies: Cough, Wheezing, SOB at rest - Gastrointestinal Gastrointestinal: denies: Abdominal pain, Constipation, Diarrhea, Change in bowel habits, Nausea, Vomiting - Genitourinary Genitourinary: denies: Dysuria - Integumentary Integumentary: denies: Rash, Pruritis - Neurological Neurological: reports: Headache Physical - Abdominal Exam Vital Signs: Temp Pulse Resp BP Pulse Ox 36.3 C L 110 H 18 132/93 H 100 10/14/20 10:13 10/14/20 10:13 10/14/20 10:13 10/14/20 11:48 10/14/20 10:13 Contraction Frequency (min/apart): 6-8 Contraction Intensity: positive: Mild Uterine Resting Tone: positive: Soft - Monitoring Heart Rate Baseline: 140 Strip Review: positive: Category I - Presentation Presentation: positive: Vertex - Vaginal Exam Membranes: positive: Membranes intact Dilation (in cm): 1-2 Effacement (%): 50 Station: positive: -3 Cervical Position: positive: Posterior - Speculum Exam Speculum Exam Performed: positive: No Plan for Labor - Plan For Labor I expect patient to be DC'd or transferred within 96 hours.: Yes Plan for Labor: Annanessia is a 25yo @ 38.1wks gestation by LMP c/w 9.6wk U/S who presents to [facility] for medical induction of labor secondary to gestational hypertension. Her blood pressure was mildly elevated earlier in her and today upon arrival to the unit for scheduled NST secondary to persistently decreased movement she was noted to have mildly elevated blood pressure again. She reports mild, intermittent headache for the past couple of hours. Reports intermittent spotting in her visual field which seems to come and go in for her and does not seem all that abnormal. She denies RUQ or epigastric pain and states her LE edema seems to be consistent with what it has been for the past several weeks. She denies vaginal bleeding or leakage of fluid. She reports some movements but still difficult for her to appreciate consistently. She has been a patient of [facility] through the duration of her which has been complicated by severe pubic bone pain and her recent diagnosis of gestational hypertension. In addition she tested positive for group B strep at 37.5wks gestation. Dating criteria: LMP 01/21/2020 Initial U/S @ 9.6wks c/w LMP dating Serial Exams - agree OB Hx: G1: Current PMHx: anxiety Surgical Hx: none Social Hx: Never smoker. No ETOH or IVDA. Bill. Family Hx: no significant course: Initial U/S: at 9.6wks c/w LMP for KAYLIE 10/27/2020 A NEGATIVE - Rhogam- 08/10/2020 Rubella immune VZV-immune Gentic testing: Quad screen- Neg. SMA and Fragile X - denies, Cystic Fibrosis- Neg Elevated BMI (35.16)- ASA ordered for 12wks, HgB A1C- 5.4% FAS: WNL with the exception of poor visualization of outflow tracts. Anterior placenta, no previa. 3VC. YONIS WNL. Size c/w dating (EFW 24%tile) f/u Complete FAS WNL Glucola 118 Flu: no TDAP 08/10/2020 Covid vax - no GBS POSITIVE @ 37.5wks HSV: denies self and partner Breast pump Rx 08/10/2020 MOD: Anticipate . Bill. Baby BOY: Lawrence. pp contraception: unsure PAP: 01/2018-WNL Physical Exam: Normocephalic, atraumatic Heart RRR w/o M/G/R Lungs CTAB Abdomen gravid, soft, nontender EFW 3500g FHR baseline 140s, moderate variability, + accels, no decels Contractions palpate mild every 6-8 minutes with soft resting tone SVE 1-2/50/-3, posterior, vertex, soft. Membrane intact Bilateral LE's 1+ edema Mood is good. Assessment: 25yo @ 38.1wks gestation by LMP c/w 9.6wk U/S Gestational hypertension GBS positive Rh negative FHR Category I Plan: Admit for active management/medical induction of labor. Place cervical ripening balloon. Initiate pitocin for induction of labor with titration per protocol Continuous monitoring Initiate Ampicillin for GBS prophylaxis per protocol. Encouraged ambulation and position changes. Jacuzzi PRN. Nitrous oxide PRN. Epidural per maternal request. Anticipate .
[2020-10-14] MEDS ORDERED: OXYTOCIN/SODIUM CHLORIDE 500 ML IV SCH (14:00)
[2020-10-14] MEDS ORDERED: LACTATED RINGERS 1,000 ML IV SCH (14:00)
--- NOTE | 2020-10-14 14:04 | PROVIDER PROGRESS NOTE ---
Labor Progress Note - Labor Progress Note Labor Progress Note/Additional Text: Tovar cervical ripening bulb placed with 60cc intrauterine and 60cc vaginal and taped with tension to inner thigh of right leg. Will remove after 12 hours if not spontaneously expelled prior. Pt tolerated placement well.
[2020-10-14] MEDS ORDERED: SODIUM CHLORIDE FLUSH 0.9% 10 ML SYRINGE IVP SCH (17:00)
--- NOTE | 2020-10-14 18:27 | PROVIDER PROGRESS NOTE ---
Labor Progress Note - Uterine Monitoring Uterine Monitoring Mode: positive: External toco Contraction Frequency (min/apart): 4-8 Contraction Intensity: positive: Mild Uterine Resting Tone: positive: Soft - Monitoring Monitor Mode: positive: External ultrasound Heart Rate Baseline: 145 Heart Rate Variability: positive: Moderate (6-25 bmp) Accelerations: positive: Present, 15x15 Decelerations: positive: None Strip Review: positive: Category I - Vaginal Exam Dilation (in cm): 5 Effacement (%): 90 Station: -2 Cervical Position: Midposition - Labor Progress Note Labor Progress Note/Additional Text: S: Feeling consistent contractions which she appreciates as tightening which she feels is in her lower back and also in the lower front of her abdomen. She reports noticing a gush at 1550 which was a moderate amount of clear fluid and continues to experience small amounts of leaking. Has noticed a small amount of bloody show when she is up to the bathroom. She is coping well with her contractions. Her Bill is supportive at the bedside. Mood is good. O: FHR baseline 145, moderate variability, + accels, no decels Contractions palpate mild every 4-8 minutes with soft resting tone BP 129/69 and has remained normotensive during her inpatient stay thus far SROM x 2.5 hrs (1550 SROM clear fluid); Ampicillin delayed onset secondary to staffing issues. SVE 5/90/-2, vertex A: 25yo @ 38.1wks gestation Gestational hypertension GBS positive Rh negative FHR category I P: Continuous monitoring Initiate Ampicillin for GBS prophylaxis per protocol. Hold pitocin until second dose of ampicillin started. Encouraged ambulation and position changes. Jacuzzi PRN. Nitrous oxide PRN. Epidural per maternal request. Anticipate .
[2020-10-14] MEDS: AMPICILLIN 1 GM in SODIUM CHLORIDE 0.9% MINIBAG 100 ML IV SCH (23:05)
[2020-10-15] MEDS ORDERED: ROPIVACAINE 0.2% 200 MG/100 ML BAG EP ONE (02:26)
[2020-10-15] MEDS ORDERED: ePHEDrine 50 MG/ML VIAL IVP ONE (02:43)
[2020-10-15] MEDS: AMPICILLIN 1 GM in SODIUM CHLORIDE 0.9% MINIBAG 100 ML IV SCH (03:05)
[2020-10-15] MEDS ORDERED: HYDROCORTISONE 1% CREAM 28 GM TUBE PR PRN (06:55)
[2020-10-15] MEDS ORDERED: WITCH HAZEL/GLYCERIN 1 PAD TOP PRN (06:55)
--- NOTE | 2020-10-15 06:55 | DELIVERY NOTE ---
Delivery Note - Labor Labor: positive: Augmented by oxytocin - Delivery Method Delivery Method: positive: Spontaneous vaginal delivery - Cervical Ripening Method Cervical Ripening Method: positive: Balloon device - Presentation Presentation: positive: Vertex, WILBERT - right occiput anterior - Nuchal Cord Nuchal Cord: positive: Present - Amniotic Fluid Description Amniotic Fluid Description: positive: Clear - Episiotomy Type Episiotomy Type: positive: None - Laceration Laceration: positive: None - Delivery Outcome Delivery Outcome: positive: Livebirth - [place] : positive: Placed in direct skin contact with mother, Stimulated, Warmed [place] sex: positive: Male - Cord Cord: positive: 3 vessels - Placenta Placenta: positive: Intact, Spontaneous - Estimated Blood Loss Estimated Blood Loss (in cc): 250 - Post Delivery Events Post Delivery Events: positive: No post delivery events - Delivery Comments (Free Text/Narrative) Delivery Comments (Free Text/Narrative): Labor: This 25yo @ 38.2wks gestation by LMP c/w first trimester ultrasound presented on 10/14/2020 for medical induction of labor secondary to gestational hypertension. Her preeclampsia labs were normal. Cervix was 1-2/50/-3, posterior and vertex with intact membranes. A cervical ripening balloon was placed with 60cc intrauterine and 60cc vaginal for preinduction cervical ripening. SROM occurred at 1550 and was noted to be a moderate amount of clear fluid. Pitocin initiated for labor augmentation for a maximum infusion rate of 3mU/mL. Epidural placed per maternal request. FHR pattern demonstrated Category I pattern with period of Category II following placement of epidural and prior to onset of pushing with adequate recovery. Pt progressed to c/c/+2 at 0523 with onset of active pushing at 0552. : of viable male infant with head delivered at 0610. Tight nuchal cord evulsed with attempt to reduce with complete delivery at 0611. The was placed on maternal abdomen and then immediately moved to infant warmer for resuscitation where he received 2 min of PPV, 2 min of CPAP, and 5 minutes of blow by O2. 's were 2/8/9 at 1, 5, and 10 minutes respectively. Pitocin administered via IV for hemostasis. 3VC. Unable to obtain cord blood or gases secondary to evulsion. Fundal massage and gentle cord traction applied for active management of the third stage. Placenta delivered spontaneously and intact at 0618. EBL 200mL. Fourth stage: Uterine fundus firm and there is no excessive bleeding. The perineum, vagina, and cervix were inspected and noted to be intact. scallop cutter machine home paraprofessional present for assessment and transitioning well at this time. Family bonding well. Both mother and baby were left in stable condition.
[2020-10-15] MEDS: ACETAMINOPHEN 500 MG TABLET PO SCH ×2 (11:29→18:00)
[2020-10-15] MEDS: IBUPROFEN 800 MG TABLET PO SCH ×3 (11:30→21:05)
[2020-10-15] MEDS: DOCUSATE SODIUM 100 MG CAPSULE PO SCH ×2 (11:30→21:05)
[2020-10-15] MEDS ORDERED: RHO(D) IMMUNE GLOBULIN 300 MCG SYRINGE IM ONE (23:26)
[2020-10-16] MEDS: ACETAMINOPHEN 500 MG TABLET PO SCH ×3 (02:09→17:59)
[2020-10-16] MEDS: IBUPROFEN 800 MG TABLET PO SCH ×3 (04:30→16:18)
[2020-10-16] MEDS: DOCUSATE SODIUM 100 MG CAPSULE PO SCH ×2 (10:19→21:08)
--- NOTE | 2020-10-16 11:12 | PROVIDER PROGRESS NOTE ---
Subjective - Prog Note Date Prog Note Date: 10/16/20 Prog Note Time: 11:10 - Subjective Pt reports feeling: Improved (Patient is doing well. Patient is ambulating, urinating, and tolerating regular diet. Patient states pain is well controlled. Patient states vaginal bleeding is fairly light.) Objective - Vital Signs/Intake & Output Reviewed Vital Signs: Yes Vital Signs: Vital Signs x48h Temp Pulse Resp BP Pulse Ox 10/16/20 07:47 98.1 F 78 16 113/72 98 10/16/20 05:50 98.4 F 92 18 120/86 H 98 Intake & Output: Intake & Output 10/13/20 10/14/20 10/15/20 10/16/20 23:59 23:59 23:59 23:59 Intake Total 1200 1407.65 Output Total 600 Balance 1200 807.65 - Objective General Appearance: positive: No acute distress Respiratory: positive: Breath sounds nml. negative: Wheezes, Rales Cardiovascular: positive: Regular rate & rhythm, No murmur, No gallop Abdomen: positive: Non-tender, Nml bowel sounds, Other (Fundus is firm and below the umbilicus.) Skin: positive: Color nml Extremities: positive: No pedal edema. negative: Calf tenderness Neurologic/Psychiatric: positive: Oriented x3, Mood/affect nml Reflexes: Knee (R): 2+ - Lab Results Fish Bones: 10/14/20 11:05 10/14/20 11:05 Other Labs: Lab Results x24hrs 10/15/20 Range/Units 19:53 Blood Type A NEGATIVE Weak D (Du) WEAK-D NEGATIVE Maternal Bleed NEGATIVE (NEGATIVE) - Other Results/Comments Other Results/Comments: A- day #1 Doing well. P- Discharge patient tomorrow.
[2020-10-16] MEDS ORDERED: IBUPROFEN 600 MG TABLET PO PRN (22:30)
[2020-10-17] MEDS: ACETAMINOPHEN 500 MG TABLET PO SCH ×2 (02:29→10:43)
[2020-10-17] MEDS: DOCUSATE SODIUM 100 MG CAPSULE PO SCH (08:33)
[2020-10-17 10:44] VITALS: BP 122/81
--- NOTE | 2020-10-17 11:02 | DISCHARGE SUMMARY ---
Discharge Summary Admit Date: 10/14/20 Discharge Date: 10/17/20 Discharging Provider: Valeria Chavira Primary Care Provider: Adeola Moreira CNM Condition at Discharge: Good Discharge Disposition: 01 Home, Self Care Discharge Facility Name: [facility]. - DIAGNOSES Admission Diagnoses: IUP 38 5/7 Pre-Eclampsia without Severe Features. Discharge Diagnoses with Status of Each Condition: S/P Labor Induction with without complications. - HPI History of Present Illness: 25yo at 38 5/7 with Pre-Eclampsia without Severe Features. Patient had blood pressures that were increasing over the last week. All Pre-Eclampsia labs were normal. Blood pressures on admission were in the 140's over 90's to 100's. - HOSPITAL COURSE Hospital Course: Patient was admitted and was 2cm. A Cook's key was placed and low dose Pitocin was started. Pitocin Augmentation continued after Epidural was placed. Patient progressed in normal fashion and had and a Living male who weighed 6#7.5 ounces. Patient had a routine course. Patient is breast feeding and supplementing with bottle. Patient is tolerating a regular diet and pain is well controlled. Patient will follow-up in clinic in one week. - ALLERGIES Allergies/Adverse Reactions: Allergies Allergy/AdvReac Type Severity Reaction Status Date / Time No Known Drug Allergies Allergy Verified 10/03/20 20:38 - MEDICATIONS Home Medications: Ambulatory Orders Medication Instructions Recorded Confirmed Vit No.130/Iron/Folic 1 tab PO DAILY 09/16/20 09/16/20 [ Tablet] - PHYSICAL EXAM AT DISCHARGE General Appearance: positive: No acute distress Respiratory: positive: Breath sounds nml. negative: Wheezes, Rales Cardiovascular: positive: Regular rate & rhythm, No murmur, No gallop Abdomen: positive: Nml bowel sounds, Other (Fundus is firm and below the umbilicus.). negative: Tenderness, Guarding Skin: positive: Color nml Extremities: positive: Nml appearance, Other (Patient has a little edema in pretibial area that is not pitting.). negative: Pedal edema, Calf tenderness Reflexes: Knee (R): 2+ - LABS Result Diagrams: 10/14/20 11:05 10/14/20 11:05 - QUALITY (Female Hip Fx Only) Was patient sent home on osteoporosis medication?: No - FOLLOW UP Follow Up: October 25, 2:15pm with Adeola Moreira CNM. Patient was told to have Pelvic rest. Patient will have a regular diet. Patient is to call for headache, blurred vision, excessive bleeding, fever, chills, nausea or vomiting. Patient is aware that support is available on Labor and Delivery. Patient will utilize Motrin 600mg prn pain. Patient will check her blood pressure at home two times a day. Patient is to call for any questions or concerns. - TIME SPENT Time Spent in Discharge (Minutes): 45
--- NOTE | 2020-10-17 11:32 | Discharge Plan ---
Discharge Plan Problem Reviewed?: Yes Disposition: Home, Self Care Condition: Good Diet: Regular Activity Restrictions: Pelvic Rest Shower Restrictions: No Driving Restrictions: No Weight Bearing: Full Weight No Smoking: If you smoke, Please STOP! Call for help. Follow-up with: Adeola Moreira CNM, ARNP [Provider Admit Priv/Credential] -
== END 2020-10-17 13:05 | disposition home or self-care (01) | DRG 807 ==
LOC: WFO 09:58 → FBP 10:00 → WFO 13:06 → FBP 13:07
PROVIDERS: ADMIT Nurse Practitioner Obstetrics & Gynecology; ATTEND Obstetrics & Gynecology
PROC: 0U7C7ZZ Dilation of Cervix, Via Natural or Artificial Opening (ICD-10-PCS; principal; 2020-10-14)
PROC: 10E0XZZ Delivery of Products of Conception, External Approach (ICD-10-PCS; 2020-10-15)
DX: O14.04 Mild to moderate pre-eclampsia, complicating childbirth (principal); Z37.0 Single live birth; O69.81X0 Labor and delivery complicated by cord around neck, without compression, not applicable or unspecified; Z3A.38 38 weeks gestation of pregnancy; O99.824 Streptococcus B carrier state complicating childbirth
CPT/HCPCS: 36415; 80053; 82570; 83033; 84156; 85027; 86850; 86900; 86901; 87635; 99215; A9270; J7120; 59025; 99213

== ENCOUNTER 2020-10-24 07:37 | Emergency (ER) | payer OTHER ==
[2020-10-24 08:11] VITALS: BP 144/95
== END 2020-10-24 09:41 | disposition left against medical advice (07) ==
LOC: ED 07:37
DX: O99.355 Diseases of the nervous system complicating the puerperium (principal); G44.209 Tension-type headache, unspecified, not intractable
CPT/HCPCS: 36415; 80053; 81003; 82565; 82570; 84156; 84450; 84460; 84550; 85025; A9270; 99215

== ENCOUNTER 2020-10-24 09:33 | Outpatient (CLI) | payer OTHER ==
[2020-10-24 09:56] LABS: BILIRUBIN,URINE NEGATIVE (NEGATIVE); GLUCOSE, URINE (UA) NEGATIVE (NEGATIVE); KETONES,URINE (UA) NEGATIVE (NEGATIVE); LEUKOCYTE ESTERASE, URINE MODERATE (NEGATIVE); NITRITE,URINE NEGATIVE (NEGATIVE); OCCULT BLOOD,URINE LARGE (NEGATIVE); PH,URINE 6.5 PH (5.0-7.5); PROTEIN,URINE NEGATIVE (NEGATIVE); UROBILINOGEN,URINE 0.2 (NORMAL) E.U./dL (NORMAL)
[2020-10-24 09:58] LABS: CLARITY,URINE HAZY (CLEAR)
[2020-10-24 10:08] LABS: CREATININE,URINE 55.7 mg/dL
[2020-10-24 10:09] LABS: TOTAL PROTEIN,URINE TIMED < 6 mg/dL
[2020-10-24 10:15] LABS: BASOPHILS % (AUTO) 0.2 %; EOSINOPHILS # (AUTO) 0.3 10^3/uL (0.0-0.7); EOSINOPHILS % (AUTO) 3.1 %; HCT - HEMATOCRIT 38.8 % (37.0-47.0); HGB - HEMOGLOBIN 12.7 g/dL (12.0-16.0); LYMPHOCYTES # (AUTO) 1.9 10^3/uL (1.5-3.5); LYMPHOCYTES % (AUTO) 20.6 %; MEAN CORPUSCULAR HEMOGLOBIN 28.8 pg (27.0-31.0); MEAN CORPUSCULAR HGB CONC 32.7 g/dL (32.0-36.0); MEAN PLATELET VOLUME 9.7 fL (7.9-10.8); MONOCYTES # (AUTO) 0.9 10^3/uL (0.0-1.0); MONOCYTES % (AUTO) 9.1 %; NEUTROPHILS # (AUTO) 6.3 10^3/uL (1.5-6.6); NEUTROPHILS % (AUTO) 66.6 %; PLT - PLATELET COUNT 357 10^3/uL (130-450); RED BLOOD COUNT 4.41 10^6/uL (4.20-5.40); RED CELL DISTRIBUTION WIDTH 13.3 % (12.0-15.0); WHITE BLOOD COUNT 9.4 x10^3/uL (4.8-10.8)
[2020-10-24 10:28] LABS: ALBUMIN 3.7 g/dL (3.2-5.5); ALBUMIN/GLOBULIN RATIO 1.1 (1.0-2.2); BILIRUBIN,TOTAL 0.6 mg/dL (0.2-1.0); CALCIUM 9.2 mg/dL (8.5-10.3); CREATININE 0.8 mg/dL (0.4-1.0); POTASSIUM 4.1 mmol/L (3.5-5.0); TOTAL PROTEIN 7.2 g/dL (6.7-8.2)
[2020-10-24 10:30] LABS: CREATININE 0.8 mg/dL (0.4-1.0); URIC ACID 7.7 mg/dL (2.6-7.2)
--- NOTE | 2020-10-24 11:13 | PROVIDER PROGRESS NOTE ---
Subjective - Prog Note Date Prog Note Date: 10/24/20 Prog Note Time: 11:11 - Subjective Pt reports feeling: Improved (Patient was starting to get some relief from Ibuprofen.) Subjective: Patient is 25yo patient of Adeola Moreira CNM who presented to ED with a 3 day headache. Patient is breast feeding. Patient states headache has not resolved with Tylenol and Motrin. Patient is staying well hydrated. Patient states her swelling in hands and feet are much improved. Patient denies history of migraines. Patient had epidural in labor. Patient states headache does not change with lying down or sitting or standing up. Objective - Vital Signs/Intake & Output Vital Signs: Vital Signs x48h Temp Pulse Resp BP 10/24/20 10:45 117/87 H 10/24/20 10:30 110/86 H 10/24/20 10:15 129/86 H 10/24/20 10:00 121/89 H 10/24/20 09:54 135/94 H 10/24/20 09:45 98.2 F 115 H 18 134/81 H - Objective General Appearance: positive: Mild distress Eyes Bilateral: positive: Normal inspection Respiratory: positive: Breath sounds nml. negative: Wheezes, Rales Cardiovascular: positive: Regular rate & rhythm. negative: No murmur, No gallop Abdomen: positive: Non-tender, Nml bowel sounds Extremities: positive: Nml appearance, No pedal edema. negative: Calf tenderness Neurologic/Psychiatric: positive: Oriented x3, Mood/affect nml Reflexes: Knee (L): 2+ - Lab Results Fish Bones: 10/24/20 10:09 10/24/20 10:09 Other Labs: Lab Results x24hrs 10/24/20 10/24/20 10/24/20 Range/Units 10:09 10:09 10:09 WBC 9.4 (4.8-10.8) x10^3/uL RBC 4.41 (4.20-5.40) 10^6/uL Hgb 12.7 (12.0-16.0) g/dL Hct 38.8 (37.0-47.0) % MCV 88.0 (81.0-99.0) fL MCH 28.8 (27.0-31.0) pg MCHC 32.7 (32.0-36.0) g/dL RDW 13.3 (12.0-15.0) % Plt Count 357 (130-450) 10^3/uL MPV 9.7 (7.9-10.8) fL Neut # (Auto) 6.3 (1.5-6.6) 10^3/uL Lymph # (Auto) 1.9 (1.5-3.5) 10^3/uL Labette # (Auto) 0.9 (0.0-1.0) 10^3/uL Eos # (Auto) 0.3 (0.0-0.7) 10^3/uL Baso # (Auto) 0.0 (0.0-0.1) 10^3/uL Absolute Nucleated RBC 0.00 x10^3/uL Nucleated RBC % 0.0 /100WBC Sodium 139 (135-145) mmol/L Potassium 4.1 (3.5-5.0) mmol/L Chloride 104 (101-111) mmol/L Carbon Dioxide 24 (21-32) mmol/L Anion Gap 11.0 (6-13) BUN 10 (6-20) mg/dL Creatinine 0.8 0.8 (0.4-1.0) mg/dL Estimated GFR (MDRD) 105 105 (>89) Glucose 86 (70-100) mg/dL Uric Acid 7.7 H (2.6-7.2) mg/dL Calcium 9.2 (8.5-10.3) mg/dL Total Bilirubin 0.6 (0.2-1.0) mg/dL AST 24 24 (10-42) IU/L ALT 27 25 (10-60) IU/L Alkaline Phosphatase 69 (42-121) IU/L Total Protein 7.2 (6.7-8.2) g/dL Albumin 3.7 (3.2-5.5) g/dL Globulin 3.5 (2.1-4.2) g/dL Albumin/Globulin Ratio 1.1 (1.0-2.2) Urine Color Urine Clarity (CLEAR) Urine pH (5.0-7.5) PH Ur Specific [place] (1.002-1.030) Urine Protein (NEGATIVE) mg/dL Urine Glucose (UA) (NEGATIVE) mg/dL Urine Ketones (NEGATIVE) mg/dL Urine Occult Blood (NEGATIVE) Urine Nitrite (NEGATIVE) Urine Bilirubin (NEGATIVE) Urine Urobilinogen (NORMAL) E.U./dL Ur Leukocyte Esterase (NEGATIVE) Urine Creatinine mg/dL Ur Total Protein Timed mg/dL Protein/Creatinin Ratio 10/24/20 10/24/20 Range/Units 09:40 09:40 WBC (4.8-10.8) x10^3/uL RBC (4.20-5.40) 10^6/uL Hgb (12.0-16.0) g/dL Hct (37.0-47.0) % MCV (81.0-99.0) fL MCH (27.0-31.0) pg MCHC (32.0-36.0) g/dL RDW (12.0-15.0) % Plt Count (130-450) 10^3/uL MPV (7.9-10.8) fL Neut # (Auto) (1.5-6.6) 10^3/uL Lymph # (Auto) (1.5-3.5) 10^3/uL Labette # (Auto) (0.0-1.0) 10^3/uL Eos # (Auto) (0.0-0.7) 10^3/uL Baso # (Auto) (0.0-0.1) 10^3/uL Absolute Nucleated RBC x10^3/uL Nucleated RBC % /100WBC Sodium (135-145) mmol/L Potassium (3.5-5.0) mmol/L Chloride (101-111) mmol/L Carbon Dioxide (21-32) mmol/L Anion Gap (6-13) BUN (6-20) mg/dL Creatinine (0.4-1.0) mg/dL Estimated GFR (MDRD) (>89) Glucose (70-100) mg/dL Uric Acid (2.6-7.2) mg/dL Calcium (8.5-10.3) mg/dL Total Bilirubin (0.2-1.0) mg/dL AST (10-42) IU/L ALT (10-60) IU/L Alkaline Phosphatase (42-121) IU/L Total Protein (6.7-8.2) g/dL Albumin (3.2-5.5) g/dL Globulin (2.1-4.2) g/dL Albumin/Globulin Ratio (1.0-2.2) Urine Color YELLOW Urine Clarity HAZY (CLEAR) Urine pH 6.5 (5.0-7.5) PH Ur Specific [place] 1.010 (1.002-1.030) Urine Protein NEGATIVE (NEGATIVE) mg/dL Urine Glucose (UA) NEGATIVE (NEGATIVE) mg/dL Urine Ketones NEGATIVE (NEGATIVE) mg/dL Urine Occult Blood LARGE H (NEGATIVE) Urine Nitrite NEGATIVE (NEGATIVE) Urine Bilirubin NEGATIVE (NEGATIVE) Urine Urobilinogen 0.2 (NORMAL) (NORMAL) E.U./dL Ur Leukocyte Esterase MODERATE H (NEGATIVE) Urine Creatinine 55.7 mg/dL Ur Total Protein Timed < 6 mg/dL Protein/Creatinin Ratio Not Reportable - Other Results/Comments Other Results/Comments: P- Discharge to home. Patient has scheduled visit with Adeola Moreira CNM in clin ic tomorrow. Assessment/Plan - Problem List (1) Cephalgia Qualifiers: Headache type: tension-type Headache chronicity pattern: acute headache
[2020-10-24] MEDS ORDERED: IBUPROFEN 600 MG TABLET PO SCH (12:00)
[2020-10-24 12:51] VITALS: BP 119/75
== END 2020-10-24 11:57 | disposition home or self-care (01) ==
LOC: WFO 09:33 → FBP 09:35 → WFO 11:57
PROVIDERS: ATTEND Obstetrics & Gynecology
DX: O99.355 Diseases of the nervous system complicating the puerperium (principal); G44.209 Tension-type headache, unspecified, not intractable
CPT/HCPCS: 36415; 80053; 81003; 82565; 82570; 84156; 84450; 84460; 84550; 85025; 99215; A9270

== ENCOUNTER 2020-12-17 11:05 | Emergency (ER) | payer OTHER ==
[2020-12-17 11:32] VITALS: BP 127/81
[2020-12-17 11:56] LABS: BILIRUBIN,URINE NEGATIVE (NEGATIVE); GLUCOSE, URINE (UA) NEGATIVE (NEGATIVE); KETONES,URINE (UA) NEGATIVE (NEGATIVE); LEUKOCYTE ESTERASE, URINE NEGATIVE (NEGATIVE); NITRITE,URINE NEGATIVE (NEGATIVE); OCCULT BLOOD,URINE NEGATIVE (NEGATIVE); PROTEIN,URINE NEGATIVE (NEGATIVE); UROBILINOGEN,URINE 0.2 (NORMAL) E.U./dL (NORMAL)
[2020-12-17 11:59] LABS: CLARITY,URINE CLEAR (CLEAR); HCG UR QUAL NEGATIVE
[2020-12-17] MEDS ORDERED: DEXAMETHASONE 10 MG/ML VIAL PO STA (12:22)
[2020-12-17] MEDS ORDERED: CHERRY SYRUP 10 ML UDC PO ONE (12:22)
[2020-12-17] MEDS ORDERED: KETOROLAC 60 MG/2 ML VIAL IM STA (12:22)
--- NOTE | 2020-12-17 12:34 | ED Physician Documentation ---
PD HPI BACK PAIN - Stated complaint Stated Complaint: SIDE/BACK PX - Chief complaint Chief Complaint: Back Pain - History obtained from History obtained from: Patient - History of Present Illness Timing - onset: How many days ago (4) Timing - duration: Days (4) Timing - details: Gradual onset, Still present, Waxing and waning Location: Mid, Lower, Left Quality: Pain, Spasm, Sharp Associated symptoms: No: Fever, Weakness, Numbness, Incontinent of urine, Unable to urinate, Hematuria, Incontinent of stool Improves with: Rest Worsened by: Movement, Palpation Contributing factors: Other (Has a 2 month old baby and is working 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 She does not have fever or urinary symptoms and has not otherwise been ill. She has not been sleeping well with the baby. Her pain is bad enough that she has been mostly in bed the last several days and feels she is dehydrated. Review of Systems Constitutional: denies: Fever Eyes: denies: Decreased vision Ears: denies: Ear pain Nose: denies: Congestion Throat: denies: Sore throat Respiratory: denies: Cough GI: denies: Vomiting : denies: Dysuria, Frequency Skin: denies: Rash Musculoskeletal: reports: Back pain. denies: Neck pain, Extremity pain PD PAST MEDICAL HISTORY - Past Medical History Cardiovascular: None Respiratory: None Neuro: None Endocrine/Autoimmune: None GI: None PRIMER EXPEDITOR AND DRIER: None : None HEENT: None Psych: None Musculoskeletal: None Derm: None - Past Surgical History Past Surgical History: No - Present Medications Home Medications: Ambulatory Orders Medication Instructions Recorded Confirmed Cyclobenzaprine [Flexeril] 10 mg PO TID PRN #20 tablet 12/17/20 HYDROcod/ACETAM 5/325 [[place] 5/325] 1 - 2 tablet PO Q6H PRN #14 tablet 12/17/20 - Allergies Allergies/Adverse Reactions: Allergies Allergy/AdvReac Type Severity Reaction Status Date / Time No Known Drug Allergies Allergy Verified 12/17/20 11:31 - Social History Does the pt smoke?: No Smoking Status: Never smoker Does the pt drink ETOH?: Yes Does the pt have substance abuse?: No - Immunizations Immunizations are current?: Yes - POLST Patient has POLST: No PD ED PE NORMAL - Vitals Vital signs reviewed: Yes (hypertensive mild ) - General General: Alert and oriented X 3, No acute distress, Well developed/nourished - HEENT HEENT: Atraumatic, PERRL, EOMI - Neck Neck: Supple, no meningeal sign, No bony TTP - Cardiac Cardiac: RRR, No murmur - Respiratory Respiratory: No respiratory distress, Clear bilaterally - Abdomen Abdomen: Normal bowel sounds, Soft, Non tender, Non distended, No organomegaly - Back Back: No CVA TTP, No spinal TTP, Other (tenderness to the left paraspinous muscles of the lumbar spine. In spasm and consistent with the pain the patient is experiencing. ) - Derm Derm: Normal color, Warm and dry, No rash - Extremities Extremities: No deformity, No edema - Neuro Neuro: Alert and oriented X 3, marketing and public relations manager 2-12 intact, No motor deficit, No sensory deficit, Normal speech Eye Opening: Spontaneous Motor: Obeys Commands Verbal: Oriented GCS Score: 15 - Psych Psych: Normal mood, Normal affect Results - Vitals Vitals: Vital Signs - 24 hr 12/17/20 11:29 Temperature 36.5 C Heart Rate 77 Respiratory 16 Rate Blood Pressure 127/81 H O2 Saturation 99 Oxygen O2 Source Room air - Labs Labs: Laboratory Tests 12/17/20 11:41 Urine Color YELLOW Urine Clarity CLEAR Urine pH 6.0 Ur Specific [place] >=1.030 H Urine Protein NEGATIVE Urine Glucose (UA) NEGATIVE Urine Ketones NEGATIVE Urine Occult Blood NEGATIVE Urine Nitrite NEGATIVE Urine Bilirubin NEGATIVE Urine Urobilinogen 0.2 (NORMAL) Ur Leukocyte Esterase NEGATIVE Ur Microscopic Review NOT INDICATED Urine Culture Comments NOT INDICATED Urine HCG, Qual NEGATIVE PD MEDICAL DECISION MAKING - ED course Complexity details: considered differential, d/w patient ED course: 25-year-old female recently a mother of a baby who is now 2 months old has been burning the candle at both ends working at [employer] in the evenings and caring for her baby at night and during the day. She has developed acute spasm to the lumbar paraspinous muscles and is having trouble even moving around.Here in the emerge department she is administered 10 mg of dexamethasone and 60 mg of Toradol IM. Departure - Departure Disposition: 01 Home, Self Care Clinical Impression: Lumbar paraspinal muscle spasm, Dehydration Condition: Stable Instructions: ED Low Back Pain Injury Follow-Up: CATHY KLINE ARNP [Primary Care Provider] - Prescriptions: Cyclobenzaprine [Flexeril] 10 mg PO TID PRN #20 tablet PRN Reason: Spasms HYDROcod/ACETAM 5/325 [[place] 5/325] 1 - 2 tablet PO Q6H PRN #14 tablet PRN Reason: Pain Forms: Activity restrictions
== END 2020-12-17 12:59 | disposition home or self-care (01) ==
LOC: ED 11:05
DX: M62.830 Muscle spasm of back (principal); M54.50 Low back pain, unspecified; E86.0 Dehydration
CPT/HCPCS: 81003; 81025; 96372; 99283; A9270; 81001; 87086